=== PATIENT | female | born 1935 | race Caucasian/White ===

== ENCOUNTER 2019-12-21 13:45 | Outpatient (CLI) | payer MEDICARE, OTHER, SELFPAY ==
[2019-12-21] MEDS: iohexol 300 mg/mL 50 mL Btl PO (14:07)
[2019-12-21 14:37] LABS: Blood Urea Nitrogen 18 mg/dL (8-23)
--- NOTE | 2019-12-21 15:00 | CT_ITS ---
WS: [id number] CT ABDOMEN AND PELVIS WITH CONTRAST HISTORY: Abominal Pain TECHNIQUE: Imaging performed of the abdomen and pelvis with IV contrast. Single phase imaging of the abdomen. Coronal and sagittal reformats are submitted. All CT scans at [facility] use at least one of these dose optimization techniques: automated exposure control; mA and/or kV adjustment per patient size (includes targeted exams where dose is matched to clinical indication); or iterativ e reconstruction. IV CONTRAST: Omnipaque 300; 95 mL IV. Oral contrast: Yes. DLP: 902.85 mGy.cm COMPARISON: 01/21/2012 Lower thorax: Chronic emphysematous changes at the lung bases. No pleural effusion. Slightly enlarged cardiac silhouette. No hiatal hernia. Liver/biliary system: Normal size with no intrahepatic dilatation. Gallbladder: Prior cholecystectomy. Pancreas: Normal. Spleen: Normal. Adrenal glands: Normal. Right kidney: Normal. Left kidney: Cortical thinning upper pole selective prior studies. No solid mass or obstruction. Aorta: Moderate atherosclerosis of aorta. No aneurysm. Lymphadenopathy: None. Free fluid: There is no free fluid. Mild stranding in the fat of the RIGHT upper abdomen surrounding the colon. This is omental fat stranding which extends across the midline but greatest in the RIGHT u pper quadrant. GI tract: There is diffuse mild constipation. No mass or obstruction. Numerous diverticula in the leigh ann cending and sigmoid colon. The appendix is mildly dilated 8 mm in diameter. Abdominal wall: Unremarkable abdominal wall. No hernia. Pelvis: No free fluid or adenopathy. Mild dilatation of the bladder. There is extensive atheroscleros is in the common iliac arteries. Bones: Beam hardening artifact through the pelvis from the LEFT hip arthroplasty. Severe degenerative LEFT convex rotary scoliosis. CT/CT abdomen pelvis w con* [id number] IMPRESSION: 1. Mild omental thickening and stranding without discrete mass. Most prominent ly in the RIGHT upper abdomen with mild displacement of the transverse colon. D ifferential includes early omental neoplastic infiltration from malignancy whic h may be related to the GI tract versus infection or edema. Colonoscopy may be necessary or upper endoscopy to exclude malignancy. 2. Diffuse constipation but no obstruction. 3. No ascites. 4. Prior cholecystectomy. 5. Extensive atherosclerosis of aorta.
[2019-12-21] MEDS: iohexol 300 mg/mL 100 mL Btl IV (15:29)
== END 2019-12-21 13:46 | disposition home or self-care (01) ==
LOC: RAD 13:53
PROVIDERS: PCP Nurse Practitioner Family; Visit Provider Surgery
DX: R10.9 Unspecified abdominal pain (principal); K59.00 Constipation, unspecified; I70.0 Atherosclerosis of aorta
CPT/HCPCS: 74177; 82565; 84520

== ENCOUNTER 2020-01-08 08:22 | Day surgery (SDC) | payer MEDICARE, OTHER, SELFPAY ==
[2020-01-07 14:21] VITALS: BMI 29.0
[2020-01-08 08:58] VITALS: BP 161/86; PULSE 79; RESP 18; TEMP 36.4; O2SAT 93
[2020-01-08] MEDS: sodium chloride 0.9% 1,000 ML 30 ML IV (09:10)
[2020-01-08] MEDS: citric acid-sodium citrate 30 mL UDC PO (09:23)
--- NOTE | 2020-01-08 09:23 | P.ANESASSM_ITS ---
Pre-Anesthetic Assessment Pre-Anesthetic Assessment: Height/Weight: Height 1.55 m Weight 69.853 kg Temp Pulse Resp BP Pulse Ox 97.6 F 79 18 161/86 93 01/08/20 08:58 01/08/20 08:58 01/08/20 08:58 01/08/20 08:58 01/08/20 08:58 Preop Diagnosis: Omental thickening Proposed Procedure: Operation Date: 01/08/20 09:45 Proposed Procedures p EGD with poss biopsy/Colon 25715 57654 K52.9 K21.9(Not Applicable) - Fuad Yi MD s Colonoscopy with poss biopsy poss polypectomy(Not Applicable) - Fuad Yi MD Familial anesthetic complications: None Was Beta Santo taken within 24 hours: N/A Last intake: Intake Last Liquid Date 01/07/20 Last Liquid Time 21:30 Last Solid Date 01/06/20 Social: Social History: No alcohol and No tobacco Exam: Pre-Anes Outpt Exam: alert, oriented x 3, clear to auscultation bilaterally and regular rate & rhythm Airway: Cervical ROM: WNL Dentition: Full Pulmonary: Pulmonary: None reported CV/HEM: CV/HEM: Murmur Comments: > 4 METs, 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 [employer] : : None reported Hepatic: Hepatic: None reported GI: GI: None reported Metabolic: Metabolic: Thyroid Musc/skel: Musc/skel: OA/DJD Neuropsych: Neuropsych: None reported Anesthetic Plan: ASA status: 2 Anesthesia: MAC Risk of > 500 ml blood loss (7ml/kg in children): No Meds/Allergies Current Medications: Current Medications Generic Name Dose Route Start Last Admin Trade Name Freq PRN Reason Stop Dose Admin Sodium Chloride 1,000 mls @ 30 ml s/hr 01/08/20 08:30 01/08/20 09:10 Sodium Chloride 0.9% IV 30 mls/hr .Q24H MATTHEW Administration PFSH Anesthesia PFSH: Medical History Chronic back pain Chronic diarrhea History of diverticulitis History of gout Hypothyroidism Spinal stenosis Surgical History History of Xs 3 History of cholecystectomy History of hip surgery left hip. around 2014 History of tonsillectomy Hx of colonoscopy Family History Father Cancer Mother Diabetes Other Anesthesia complication CAD (coronary artery disease) Lung disease Denies family history of Bleeding disorder Stroke Social History Smoking and tobacco status: former smoker Alcohol intake: never History of recent travel: No Data Anesthesia Cardiac Studies: No Data to Display
--- NOTE | 2020-01-08 09:53 | W.PM.OPSUD ---
Surgery/Procedure H&P Update DATE OF PROCEDURE: January 08, 2020 DATE H&P PERFORMED: 12/28/19 H&P UPDATE INFORMATION: I have reviewed H&P completed within last 30 days, I have examined patient prior to procedure and No changes to prior documentation PREOP DIAGNOSIS: Omental thickening PLANNED PROCEDURE: Operation Date: 01/08/20 09:45 Proposed Procedures p EGD with poss biopsy/Colon [id number] 74999 K52.9 K21.9(Not Applicable) - Fuad Yi MD s Colonoscopy with poss biopsy poss polypectomy(Not Applicable) - Fuad Yi MD
[2020-01-08 10:20] VITALS: BP 141/74; PULSE 72; RESP 18; TEMP 36.4; O2SAT 100
[2020-01-08 10:30] VITALS: BP 139/71; PULSE 69; RESP 18; O2SAT 96
== END 2020-01-08 10:55 | disposition home or self-care (01) ==
PROVIDERS: PCP Nurse Practitioner Family; Visit Provider Surgery
PROC: 0DJ08ZZ Inspection of Upper Intestinal Tract, Via Natural or Artificial Opening Endoscopic (ICD-10-PCS; CPT 43235; principal; 2020-01-08 09:45)
PROC: 0DJD8ZZ Inspection of Lower Intestinal Tract, Via Natural or Artificial Opening Endoscopic (ICD-10-PCS; CPT 45378; 2020-01-08 09:45)
DX: K52.9 Noninfective gastroenteritis and colitis, unspecified (principal); K21.9 Gastro-esophageal reflux disease without esophagitis; K57.30 Diverticulosis of large intestine without perforation or abscess without bleeding; K22.2 Esophageal obstruction; K29.70 Gastritis, unspecified, without bleeding; M19.90 Unspecified osteoarthritis, unspecified site; E03.9 Hypothyroidism, unspecified
CPT/HCPCS: 12345; 43239; 45378; 88305; J2704; J7030

== ENCOUNTER 2020-09-18 13:12 | Outpatient (CLI) | payer OTHER, MEDICARE, SELFPAY ==
--- NOTE | 2020-09-18 13:17 | XR_ITS ---
WS: [id number] Exam: XR shoulder LT min 2V* [id number] Date/Time of Exam: 09/18/2020 1:30 PM Reason For Exam: L SHOULDER PAIN No acute fracture or dislocation. Moderately advanced DJD of the glenohumeral joint with near bone-on -bone articulation. Soft tissue calcification seen along the humeral head that may represent calcific bursitis or tendinitis. Mild DJD at the AC joint. Marked osteopenia. XR/XR shoulder LT min 2V* [id number] IMPRESSION: 1. No fracture or dislocation. 2. 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 3. Soft tissue calcification along the humeral head that might indicate calcifi c bursitis or tendinitis.
--- NOTE | 2020-09-18 13:17 | XR_ITS ---
WS: [id number] Exam: XR thoracic spine 3V* [id number] Date/Time of Exam: 09/18/2020 1:30 PM Reason For Exam: BACK PAIN Comparison 07/01/2010. No acute fracture. Degenerative disc changes and spondylosis. Osteopenia. Paraspinal soft tissues are unremarkable. Levoscoliosis of the lower thoracic and upper lumbar spine. XR/XR thoracic spine 3V* [id number] IMPRESSION: 1. Moderately advanced degenerative changes and osteopenia. 2. No fracture or malalignment. Scoliosis as above.
--- NOTE | 2020-09-18 13:18 | XR_ITS ---
WS: [id number] Exam: XR lumbar spine 2-3V* [id number] Date/Time of Exam: 09/18/2020 1:30 PM Reason For Exam: BACK PAIN No acute fracture or dislocation. There is grade 1 degenerative spondylolisthesis of L5 on the sacral base. Spondylosis and degenerative disc changes noted. Marked osteopenia. Facet arthropathy at all l evels. Levoscoliosis noted. Degenerative change of the SI joints. XR/XR lumbar spine 2-3V* [id number] IMPRESSION: 1. Grade 1 degenerative spondylolisthesis of L5 on S1. 2. Advanced degenerative changes and scoliosis. 3. No acute fracture. Osteopenia.
== END 2020-09-18 13:13 | disposition home or self-care (01) ==
PROVIDERS: PCP Nurse Practitioner Family; Visit Provider Nurse Practitioner Family
DX: M43.17 Spondylolisthesis, lumbosacral region (principal); M41.86 Other forms of scoliosis, lumbar region; M85.88 Other specified disorders of bone density and structure, other site; M19.012 Primary osteoarthritis, left shoulder
CPT/HCPCS: 72072; 72100; 73030

== ENCOUNTER 2021-12-26 19:40 | Emergency (ER) | payer MEDICARE, SELFPAY ==
[2021-12-26 20:01] VITALS: BP 126/78; PULSE 88; RESP 16; TEMP 37.1; O2SAT 96; BMI 26.5
--- NOTE | 2021-12-26 20:25 | ED_ITS ---
Documented by User: Santos De Luna MD 01/06/22 01:09 HPI - GI Bleed General: Chief complaint: GI Bleed Stated complaint: blood in stool Time Seen by Provider: 12/26/21 20:25 History of Present Illness: Ms. Degroot is an 86-year-old lady not on anticoagulation who presents to the emergency department due to rectal bleeding. She reports approximately 10 days of no bowel movement with exception of some liquid output. She has associated mild abdominal discomfort. Her primary concern though is that earlier today she had the urge to defecate and then just passed albaro blood with clots. Denies associated lightheadedness or infectious symptoms. No chest pain or shortness of breath. Intensity symptoms is moderate. Course has persisted. No other specific changes in health, exacerbating, or alleviating factors identified. Onset (ago): day(s) Severity: moderate Exacerbating factors: none Associated symptoms: Reports abdominal pain; Denies easy bruising, fever(s) or other bleeding Review of Systems General: Reports: 10 or more systems reviewed and unremarkable except in HPI and below Const: Denies: fever(s) GI: Reports: abdominal pain Elver/Lymph: Denies: easy bruising PFS ED PFSH: Medical History Chronic back pain Gastritis History of diverticulitis History of gout Hypothyroidism Spinal stenosis Surgical History H/O esophagogastroduodenoscopy (01/08/20) Severe gastritis, hiatal hernia, Schatzki ring History of Xs 3 History of cholecystectomy History of hip surgery left hip. around 2014 History of tonsillectomy Hx of colonoscopy (01/08/20) Diverticulosis Family History Father Cancer Mother Diabetes Other Anesthesia complication CAD (coronary artery disease) Lung disease Denies family history of Bleeding disorder Stroke Social History Smoking and tobacco status: never smoked Alcohol intake: never History of recent travel: No Physical Exam Const: COMMON NORMALS: alert GENERAL APPEARANCE: cooperative, well developed and ill appearing (Mildly) HENMT: COMMON NORMALS: normocephalic and atraumatic HEAD & SCALP: normocephalic and atraumatic THROAT: posterior oropharynx normal Eye: COMMON NORMALS: conjunctivae normal CONJUNCTIVA: Yes conjunctivae normal SCLERA: sclerae normal Neck/C-Spine: COMMON NORMALS: supple GENERAL: Yes trachea midline Resp: COMMON NORMALS: normal respiratory effort and clear to auscultation bilaterally EFFORT & INSPECTION: Yes able to speak in complete sentences AUSCULTATION: clear to auscultation bilaterally Cardio: COMMON NORMALS: regular rate and regular rhythm RATE: regular rate RHYTHM: regular rhythm GI: COMMON NORMALS: Soft to palpation PALPATION: Yes Soft to palpation, Yes Tenderness to palpation present (GI) (Very mild generalized), No Guarding due to palpation present (GI) and No Rigid due to palpation PERCUSSION: normal to percussion Extremity: GENERAL: Yes normal exam except as noted and No edema Neuro: COMMON NORMALS: moves all extremities SENSORIUM/ORIENTATION: Yes alert and No Orientation impaired Psych: COMMON NORMALS: mental status grossly normal and Normal thought process present THOUGHT PROCESS: Normal thought process present Course ED course: - Patient was seen and evaluated by me at bedside - Patient placed on cardiac monitors, IV access obtained - Initial evaluation notable for exam as above - Labs personally interpreted by me -Analgesia given - Labs notable for leukocytosis, normal hemoglobin. Mild thrombocytosis. Metabolic panel notable for mild hypokalemia, BUN normal. Potassium re plenishment ordered. Hematuria noted of unclear cause, possible contamination, in urinalysis. - Imaging notable for no active hemorrhage noted on CT abdomen pelvis. Patient has significant colonic fecal volume and evidence of fecal impaction possible. - Performed rectal exam with safety person present. There was evidence of albaro blood to the external buttocks. Perhaps mild external hemorrhoids though no active bleeding from these noted. I attempted to perform manual disimpaction however only small amounts of stool mixed with mostly blood was reachable. Stool ball is hard. Given amount of bleeding I decided additional manual disimpaction should not be performed. - Discussed with GI on-call who will see patient in the morning. Vitals satisfactory at this time and hemoglobin as noted. - Upon serial reexamination after treatment the patient was similar without decompensation during my evaluation patient - Based on patient history, evaluation, and testing as interpreted the most likely cause of the patient's condition is GI bleed - The results of ED evaluation were discussed with the patient including plan for admission due to requirement for level of care not available if discharged to prevent significant worsening/deterioration. - Admitting service was contacted and Dr Cabezas with the hospitalist service agreed to admit the patient - Per chart review patient end to being transferred after deterioration due to worsening GI bleed. Please see Dr. Choi's note under MDM for additional information. Note: Click bubbles or prepopulated solomon in note writing are used for assistance with data collection and billing and are inherently more limited than narrative and other text portions of this note. Please use narrative for additional clinical history and defer to narrative/free test for any case of contradictory information. If information appears in only free text or click bubble it should be considered present or absent as reported. Please contact note parts data writer for clarifications of clinical information or contradictory information. MDM is a brief summary, contradictory or erroneous seeming information should be clarified and full note should be reviewed. Vital Signs: Vital signs: Vital Signs Temperature 98.8 F 12/26/21 20:01 Pulse Rate 71 12/27/21 03:58 Respiratory Rate 16 12/27/21 03:58 Blood Pressure 119/68 12/27/21 03:58 Pulse Oximetry 97 12/27/21 03:58 MDM - GI Bleed Medical Decision Making 86-year-old lady with approximately 10 days of constipation presenting due to blood per rectum. Albaro blood noted per rectum however patient remains vitally stable with satisfactory hemoglobin. Discussed with GI/surgery on-call. Patient admitted to hospitalist service however per chart review subsequently decompensated. Please see Dr. Choi's note and Dr. Cabezas's note for additional information. Called to bedside regarding an increasing amount of bright red blood out of the rectum. Patient had been admitted to ICU for lower GI bleeding. Bleeding is in creasing in volume. Blood pressure is a bit softer now, 96 over 50s. She is nontachycardic. She is having some rectal/left lower quadrant pain. I have crossmatched her for 2 units of packed cells, and given her a gram of tranexamic acid. I spoke with the hospitalist, who is nervous about admitting this patient to our facility given no gastroenterology availability. I tend to agree, as this patient will need intervention of some sort. We have spoken to [facility] emergency department. They are willing to take in transfer. Due to critical nature, and decreased ground ambulance availability, she will go by air. Medical Records I reviewed the patient's medical records. Lab Data I reviewed the patient's lab results. : 12/26/21 21:20 12/26/21 21:20 Radiology Impressions Abdomen/Pelvis CT 12/26/21 20:56 IMPRESSION: 1. No active gastrointestinal bleeding is identified. 2. Large colonic fecal volume. Fecal impaction of the rectum not excluded. Laboratory Results WBC 14.9 10^3/uL (4.0-10.0) H 12/26/21 21:20 RBC 4.08 10^6/uL (4.1-5.3) L 12/26/21 21:20 Hgb 12.1 g/dL (11.5-15.3) 12/26/21 21:20 Hct 36.8 % (37.0-47.0) L 12/26/21 21:20 MCV 90.2 fl (81-99) 12/26/21 21:20 MCH 29.7 pg (28.0-34.0) 12/26/21 21:20 MCHC 32.9 g/dL (30.0-36.0) 12/26/21 21:20 RDW 13.2 % (12.1-15.1) 12/26/21 21:20 Plt Count 508 10^3/cmm (130-400) H 12/26/21 21:20 MPV 9.5 fL (7.4-10.4) 12/26/21 21:20 Neut % (Auto) 68.8 % 12/26/21 21:20 Lymph % (Auto) 19.0 % 12/26/21 21:20 [place] % (Auto) 10.2 % 12/26/21 21:20 Eos % (Auto) 1.1 % 12/26/21 21:20 Baso % (Auto) 0.5 % 12/26/21 21:20 Neut # (Auto) 10.22 10^3/uL (1.8-7.7) H 12/26/21 21:20 Lymph # (Auto) 2.8 10^3/uL (0.8-4.8) 12/26/21 21:20 [place] # (Auto) 1.5 10^3/uL (0.2-0.9) H 12/26/21 21:20 Eos # (Auto) 0.2 10^3/uL (0.0-0.8) 12/26/21 21:20 Baso # (Auto) 0.1 10^3/uL (0.0-0.1) 12/26/21 21:20 Nucleated RBC % (auto) 0 % 12/26/21 21:20 Nucleated RBCs # 0.0 /100WBC 12/26/21 21:20 PT 12.80 SECONDS (12.1-14.9) 12/26/21 21:20 INR 0.93 (0.8-1.2) 12/26/21 21:20 APTT 25.2 SECONDS (23.9-36.7) 12/26/21 21:20 Sodium 137 mmol/L (136-145) 12/26/21 21:20 Potassium 3.1 mmol/L (3.5-5.1) L 12/26/21 21:20 Chloride 100 mmol/L (98-107) 12/26/21 21:20 Carbon Dioxide 25 mmol/L (22-29) 12/26/21 21:20 Anion Gap 15.1 (5-19) 12/26/21 21:20 BUN 23 mg/dL (8-23) 12/26/21 21:20 Creatinine 0.9 mg/dL (0.5-0.9) 12/26/21 21:20 GFR Calculation Not Reportable 12/26/21 21:20 Glucose 100 mg/dL (65-115) 12/26/21 21:20 Calculated Osmolality 288 mOsm/kg (285-295) 12/26/21 21:20 Lactate 1.2 mmol/L (0.5-2.2) 12/26/21 21:20 Calcium 9.1 mg/dL (8.5-10.5) 12/26/21 21:20 Total Bilirubin 0.2 mg/dL (0.15-1.2) 12/26/21 21:20 AST 18 U/L (0-32) 12/26/21 21:20 ALT 14 U/L (0-33) 12/26/21 21:20 Alkaline Phosphatase 64 IU/L (35-105) 12/26/21 21:20 Total Protein 6.0 g/dL (6.6-8.7) L 12/26/21 21:20 Albumin 4.0 g/dL (3.5-5.2) 12/26/21 21:20 Globulin 2.0 g/dL (1.3-4.6) 12/26/21 21:20 Lipase 26 U/L (13-60) 12/26/21 21:20 Urine Color Yellow (Yellow) 12/26/21 23:49 Urine Appearance Clear (CLEAR) 12/26/21 23:49 Urine pH 7 (5-7) 12/26/21 23:49 Ur Specific [place] 1.005 (1.005-1.030) 12/26/21 23:49 Urine Protein Neg (Negative) 12/26/21 23:49 Urine Glucose (UA) Norm (Normal) 12/26/21 23:49 Urine Ketones Negative (Negative) 12/26/21 23:49 Urine Blood 3+ (Negative) H 12/26/21 23:49 Urine Nitrate Negative (Negative) 12/26/21 23:49 Urine Bilirubin Neg (Negative) 12/26/21 23:49 Urine Urobilinogen Norm mg/dL (Negative) 12/26/21 23:49 Ur Leukocyte Esterase Negative (Negative) 12/26/21 23:49 Urine RBC 10-15 /hpf (0-2) H 12/26/21 23:49 Urine WBC 0-4 /hpf (0-5) H 12/26/21 23:49 Ur Squamous Epith Cells 0-4 /hpf (0-5) H 12/26/21 23:49 Amorphous Sediment Not Reportable 12/26/21 23:49 Urine Bacteria Trace /hpf (NONE) 12/26/21 23:49 Blood Type O Negative 12/26/21 23:30 Rho(D) Type Negative 12/26/21 23:30 Antibody Screen Positive 12/26/21 23:30 Antibody Identification Anti-D 12/26/21 23:30 Crossmatch See Detail 12/26/21 23:30 Critical Care Time Critical Care Time: Critical Care Time: Yes Total Critical Care Time: 35 Attestation: Due to a high probability of clinically significant, possibly life threatening deterioration, the patient required my highest level of attention and preparedness to intervene emergently and I personally spent this critical care time directly and personally managing the patient. This critical care time included obtaining a history; examining the patient; pulse oximetry; ordering and review of laboratory and imaging studies; arranging urgent treatment with development of a management plan; evaluation of patient's response to treatment; frequent reassessment; and, discussions with other providers as applicable. It was exclusive of separately billable procedures. Performed by Dr. Choi Discharge Plan Discharge Patient Disposition: Xfer Short-Term Hosp Clinical Impression: Acute GI bleeding, Constipation Condition: Stable Referrals: Arlin Aguilar APN [Primary Care Provider] - Coding Level of Care Code ED Group Home Counselor for Chg Fwd Documented by User: Tono Choi DO 12/27/21 02:51 HPI - GI Bleed General: Chief complaint: GI Bleed Stated complaint: blood in stool Time Seen by Provider: 12/26/21 20:25 PFSH ED PFSH: Medical History Chronic back pain Gastritis History of diverticulitis History of gout Hypothyroidism Spinal stenosis Surgical History H/O esophagogastroduodenoscopy (01/08/20) Severe gastritis, hiatal hernia, Schatzki ring History of Xs 3 History of cholecystectomy History of hip surgery left hip. around 2014 History of tonsillectomy Hx of colonoscopy (01/08/20) Diverticulosis Family History Father Cancer Mother Diabetes Other Anesthesia complication CAD (coronary artery disease) Lung disease Denies family history of Bleeding disorder Stroke Social History Smoking and tobacco status: never smoked Alcohol intake: never History of recent travel: No Course Vital Signs: Vital signs: Vital Signs Temperature 98.8 F 12/26/21 20:01 Pulse Rate 71 12/27/21 03:58 Respiratory Rate 16 12/27/21 03:58 Blood Pressure 119/68 12/27/21 03:58 Pulse Oximetry 97 12/27/21 03:58 MDM - GI Bleed Medical Decision Making Called to bedside regarding an increasing amount of bright red blood out of the rectum. Patient had been admitted to ICU for lower GI bleeding. Bleeding is increasing in volume. Blood pressure is a bit softer now, 96 over 50s. She is nontachycardic. She is having some rectal/left lower quadrant pain. I have microarray analyst ssmatched her for 2 units of packed cells, and given her a gram of tranexamic acid. I spoke with the hospitalist, who is nervous about admitting this patient to our facility given no gastroenterology availability. I tend to agree, as this patient will need intervention of some sort. We have spoken to [facility] emergency department. They are willing to take in transfer. Due to critical nature, and decreased ground ambulance availability, she will go by air. Lab Data : 12/26/21 21:20 12/26/21 21:20 Radiology Impressions Abdomen/Pelvis CT 12/26/21 20:56 IMPRESSION: 1. No active gastrointestinal bleeding is identified. 2. Large colonic fecal volume. Fecal impaction of the rectum not excluded. Laboratory Results WBC 14.9 10^3/uL (4.0-10.0) H 12/26/21 21:20 RBC 4.08 10^6/uL (4.1-5.3) L 12/26/21 21:20 Hgb 12.1 g/dL (11.5-15.3) 12/26/21 21:20 Hct 36.8 % (37.0-47.0) L 12/26/21 21:20 MCV 90.2 fl (81-99) 12/26/21 21:20 MCH 29.7 pg (28.0-34.0) 12/26/21 21:20 MCHC 32.9 g/dL (30.0-36.0) 12/26/21 21:20 RDW 13.2 % (12.1-15.1) 12/26/21 21:20 Plt Count 508 10^3/cmm (130-400) H 12/26/21 21:20 MPV 9.5 fL (7.4-10.4) 12/26/21 21:20 Neut % (Auto) 68.8 % 12/26/21 21:20 Lymph % (Auto) 19.0 % 12/26/21 21:20 [place] % (Auto) 10.2 % 12/26/21 21:20 Eos % (Auto) 1.1 % 12/26/21 21:20 Baso % (Auto) 0.5 % 12/26/21 21:20 Neut # (Auto) 10.22 10^3/uL (1.8-7.7) H 12/26/21 21:20 Lymph # (Auto) 2.8 10^3/uL (0.8-4.8) 12/26/21 21:20 [place] # (Auto) 1.5 10^3/uL (0.2-0.9) H 12/26/21 21:20 Eos # (Auto) 0.2 10^3/uL (0.0-0.8) 12/26/21 21:20 Baso # (Auto) 0.1 10^3/uL (0.0-0.1) 12/26/21 21:20 Nucleated RBC % (auto) 0 % 12/26/21 21:20 Nucleated RBCs # 0.0 /100WBC 12/26/21 21:20 PT 12.80 SECONDS (12.1-14.9) 12/26/21 21:20 INR 0.93 (0.8-1.2) 12/26/21 21:20 APTT 25.2 SECONDS (23.9-36.7) 12/26/21 21:20 Sodium 137 mmol/L (136-145) 12/26/21 21:20 Potassium 3.1 mmol/L (3.5-5.1) L 12/26/21 21:20 Chloride 100 mmol/L (98-107) 12/26/21 21:20 Carbon Dioxide 25 mmol/L (22-29) 12/26/21 21:20 Anion Gap 15.1 (5-19) 12/26/21 21:20 BUN 23 mg/dL (8-23) 12/26/21 21:20 Creatinine 0.9 mg/dL (0.5-0.9) 12/26/21 21:20 GFR Calculation Not Reportable 12/26/21 21:20 Glucose 100 mg/dL (65-115) 12/26/21 21:20 Calculated Osmolality 288 mOsm/kg (285-295) 12/26/21 21:20 Lactate 1.2 mmol/L (0.5-2.2) 12/26/21 21:20 Calcium 9.1 mg/dL (8.5-10.5) 12/26/21 21:20 Total Bilirubin 0.2 mg/dL (0.15-1.2) 12/26/21 21:20 AST 18 U/L (0-32) 12/26/21 21:20 ALT 14 U/L (0-33) 12/26/21 21:20 Alkaline Phosphatase 64 IU/L (35-105) 12/26/21 21:20 Total Protein 6.0 g/dL (6.6-8.7) L 12/26/21 21:20 Albumin 4.0 g/dL (3.5-5.2) 12/26/21 21:20 Globulin 2.0 g/dL (1.3-4.6) 12/26/21 21:20 Lipase 26 U/L (13-60) 12/26/21 21:20 Urine Color Yellow (Yellow) 12/26/21 23:49 Urine Appearance Clear (CLEAR) 12/26/21 23:49 Urine pH 7 (5-7) 12/26/21 23:49 Ur Specific [place] 1.005 (1.005-1.030) 12/26/21 23:49 Urine Protein Neg (Negative) 12/26/21 23:49 Urine Glucose (UA) Norm (Normal) 12/26/21 23:49 Urine Ketones Negative (Negative) 12/26/21 23:49 Urine Blood 3+ (Negative) H 12/26/21 23:49 Urine Nitrate Negative (Negative) 12/26/21 23:49 Urine Bilirubin Neg (Negative) 12/26/21 23:49 Urine Urobilinogen Norm mg/dL (Negative) 12/26/21 23:49 Ur Leukocyte Esterase Negative (Negative) 12/26/21 23:49 Urine RBC 10-15 /hpf (0-2) H 12/26/21 23:49 Urine WBC 0-4 /hpf (0-5) H 12/26/21 23:49 Ur Squamous Epith Cells 0-4 /hpf (0-5) H 12/26/21 23:49 Amorphous Sediment Not Reportable 12/26/21 23:49 Urine Bacteria Trace /hpf (NONE) 12/26/21 23:49 Blood Type O Negative 12/26/21 23:30 Rho(D) Type Negative 12/26/21 23:30 Antibody Screen Positive 12/26/21 23:30 Antibody Identification Anti-D 12/26/21 23:30 Crossmatch See Detail 12/26/21 23:30 Discharge Plan Discharge Patient Disposition: Xfer Short-Term Hosp Clinical Impression: Acute GI bleeding, Constipation Condition: Stable Referrals: Aguilar,Arlin [employer] [Primary Care Provider] - Coding Level of Care Code ED Group Home Counselor for Rachael Palacio
[2021-12-26 20:30] VITALS: BP 118/71; PULSE 85; O2SAT 97
--- NOTE | 2021-12-26 20:56 | CTR_ITS ---
PROCEDURE INFORMATION: Exam: CT Abdomen And Pelvis With Contrast Exam date and time: 12/26/2021 10:25 PM Age: 86 years old Clinical indication: Other: Gi bleeding; Prior surgery; Surgery date: 6+ months; Surgery type: Hsyt, gb; Additional info: Gi bleed TECHNIQUE: Imaging protocol: Computed tomography of the abdomen and pelvis with contrast. Radiation optimization: All CT scans at this facility use at least one of these dose optimization techniques: automated exposure control; mA and/or kV adjustment per patient size (includes targeted exams where dose is matched to clinical indication); or iterative reconstruction. Contrast material: OMNI 300; Contrast volume: 95 ml; Contrast route: INTRAVENOUS (IV); COMPARISON: CT abdomen pelvis w con* [id number] 12/21/2019 3:18 PM RADIATION DOSE METRICS: Total DLP (mGy-cm): 1197.7 FINDINGS: Liver: Normal. No mass. Gallbladder and bile ducts: Cholecystectomy. Mildly dilated common bile duct is nonspecific after cholecystectomy. Stable finding from prior. Pancreas: Normal. No ductal dilation. Spleen: Normal. No splenomegaly. Adrenal glands: Normal. No mass. Kidneys and ureters: Normal. No hydronephrosis. Stomach and bowel: Large diffuse colonic fecal volume. Diverticulosis coli. No focal bowel mass. No focal bowel inflammatory changes identified. There is a large collection of rounded radiopaque calcified stones which layer dependently in the lumen a patulous, dilated cecum most consistent with multiple fecaliths. No extravasation of contrast into the bowel lumen identified. Appendix: No evidence of appendicitis. Intraperitoneal space: Unremarkable. No free air. No significant fluid collection. Vasculature: Unremarkable. No abdominal aortic aneurysm. Lymph nodes: Unremarkable. No enlarged lymph nodes. Urinary bladder: Unremarkable as visualized. Reproductive: Hysterectomy. Bones/joints: Left hip arthroplasty has unremarkable alignment. Grade 1 L5-S1 spondylolisthesis with severe degenerate disc disease.The lumbar spine demonstrates marked discogenic and apophyseal joint degenerative changes at multiple levels. Leftward convex lumbar spine scoliosis. Soft tissues: Unremarkable. CT/CT abdomen pelvis w con* [id number] IMPRESSION: 1. No active gastrointestinal bleeding is identified. 2. Large colonic fecal volume. Fecal impaction of the rectum not excluded.
[2021-12-26 21:30] VITALS: BP 121/86; PULSE 79; RESP 20; O2SAT 95
[2021-12-26 21:45] LABS: Basophils # 0.1 10^3/uL (0.0-0.1); Basophils % 0.5 %; Eosinophils # 0.2 10^3/uL (0.0-0.8); Eosinophils % 1.1 %; Hematocrit 36.8 % (37.0-47.0); Hemoglobin 12.1 g/dL (11.5-15.3); Lymphocytes # 2.8 10^3/uL (0.8-4.8); Mean Corpuscular HGB Conc 32.9 g/dL (30.0-36.0); Mean Corpuscular Hemoglobin 29.7 pg (28.0-34.0); Mean Corpuscular Volume 90.2 fl (81-99); Mean Platelet Volume 9.5 fL (7.4-10.4); Monocytes # 1.5 10^3/uL (0.2-0.9); Monocytes % 10.2 %; Neutrophils # 10.22 10^3/uL (1.8-7.7); Neutrophils % 68.8 %; Nucleated Red Blood Cells % 0 %; Platelet Count 508 10^3/cmm (130-400); Red Blood Count 4.08 10^6/uL (4.1-5.3); Red Cell Distribution Width 13.2 % (12.1-15.1); White Blood Count 14.9 10^3/uL (4.0-10.0)
[2021-12-26 21:56] LABS: INR 0.93 (0.8-1.2); Partial Thromboplastin Time 25.2 SECONDS (23.9-36.7)
[2021-12-26 22:01] LABS: Alanine Aminotransferase 14 U/L (0-33); Alkaline Phosphatase 64 IU/L (35-105); Anion Gap 15.1 (5-19); Aspartate Amino Transferase 18 U/L (0-32); Blood Urea Nitrogen 23 mg/dL (8-23); Calcium 9.1 mg/dL (8.5-10.5); Carbon Dioxide 25 mmol/L (22-29); Chloride 100 mmol/L (98-107); Glucose 100 mg/dL (65-115); Lactate (Lactic Acid level) 1.2 mmol/L (0.5-2.2); Lipase 26 U/L (13-60); Osmolality Calculated 288 mOsm/kg (285-295); Potassium 3.1 mmol/L (3.5-5.1); Sodium 137 mmol/L (136-145); Total Bilirubin 0.2 mg/dL (0.15-1.2)
[2021-12-26] MEDS: iohexol 300 mg/mL 100 mL Btl IV (22:24)
--- NOTE | 2021-12-26 22:53 | PC.NURSE ---
pt had stool in bathroom that was blood, pt's rectum observed blood clots notes and notified
[2021-12-26 23:41] VITALS: RESP 18; O2SAT 93
[2021-12-26] MEDS: potassium chloride oral liq 20 mEq/15 mL UDC 40 MEQ PO (23:41)
[2021-12-26] MEDS: lidocaine 2% Urojet 20 mL TOPICAL (23:41)
[2021-12-26] MEDS: fentaNYL 50 mcg/mL INJ 2mL IVP (23:41)
[2021-12-27] VITALS: BP 139/75; PULSE 84; RESP 18; O2SAT 94
[2021-12-27 00:12] LABS: Add Urine Culture? No; Add Urine Microscopic? YES; Bacteria Urine TRACE /hpf; Bilirubin Urine Neg (Negative); Blood Urine 3+ (Negative); Glucose Urine UA Norm (Normal); Ketones Urine Negative (Negative); Leukocyte Esterase Urine Negative (Negative); Nitrate Urine Negative (Negative); Protein Urine Neg (Negative); Specific Gravity, Urine 1.005 (1.005-1.030); Squamous Epithelial Cell Urine 0-4 /hpf (0-5); Urine Appearance Clear (CLEAR); Urine Color Yellow (Yellow); Urobilinogen Urine Norm (Negative); WBC Urine 0-4 /hpf (0-5); pH Urine 7 (5-7)
[2021-12-27 00:30] VITALS: BP 112/64; PULSE 70; RESP 18; O2SAT 96
[2021-12-27 01:00] VITALS: BP 105/69; PULSE 98; RESP 20; O2SAT 98
[2021-12-27 01:30] VITALS: BP 90/54; PULSE 83; RESP 18; O2SAT 93
--- NOTE | 2021-12-27 01:40 | P.HP_ITS ---
Providers/Chief Complaint Primary Care Provider: Arlin Aguilar APN Chief Complaint: blood in stool History of Present Illness Kassie Degroot is a 86 year old female with a diverticulosis, hypothyroidism, chronic back pain, history of EGDs, who presents to [facility] due to 1 day history of bloody stools. Patient tells me that yesterday at 3 PM, she started develop frankly bloody stools when she had a bowel movement, she had 1 episode at 3 PM, she has had 1 episode here in the emergency room. No lightheadedness, dizziness, no nausea, no vomiting. She was able to ambulate by herself to the bathroom here in the emergency room without any lightheadedness or dizziness. No falls. No history of blood thinner use. Denies a prior history of bleeding. Does have history of hemorrhoids. She did have an EGD roughly year ago for gastritis, Was found to have a Schatzki's ring Review of Systems Const: Denies: fever(s) Resp: Denies: dyspnea, productive cough, non-productive cough or wheezing GI: Denies: abdominal pain, nausea or vomiting : Denies: dysuria Neuro: Denies: dizziness Medications/Allergies Home Medications Medication Instructions Recorded Confirmed Last Taken Type betaine HCl 300 mg tablet 300 mg PO BID 11/08/19 06/23/21 01/07/20 History duloxetine 60 mg capsule,delayed 60 mg PO DAILY 11/08/19 06/23/21 01/07/20 History release (Cymbalta) furosemide 40 mg tablet (Lasix) 40 mg PO BID 11/08/19 06/23/21 01/07/20 History hydrocodone 10 mg-acetaminophen 1 tab PO Q4H PRN tab 11/08/19 06/23/21 01/08/20 History 325 mg tablet levothyroxine 75 mcg tablet 75 mcg PO DAILY 11/08/19 06/23/21 01/08/20 History (Synthroid) magnesium hydroxide 400 mg (170 mg 400 mg PO DAILY 11/08/19 06/23/21 01/07/20 History magnesium) chewable tablet dexlansoprazole 60 mg 60 mg PO DAILY 30 Days #30 cap 12/19/20 06/23/21 Unknown Rx capsule,biphase delayed release Allergies Allergy/AdvReac Type Severity Reaction Status Date / Time codeine Allergy Unknown cant Verified 06/23/21 14:34 remember Sulfa (Sulfonamide Allergy Unknown cant Verified 06/23/21 14:34 Antibiotics) remember PFSH Acute PFSH: Medical History Chronic back pain Gastritis History of diverticulitis History of gout Hypothyroidism Spinal stenosis Surgical History H/O esophagogastroduodenoscopy (01/08/20) Severe gastritis, hiatal hernia, Schatzki ring History of Xs 3 History of cholecystectomy History of hip surgery left hip. around 2014 History of tonsillectomy Hx of colonoscopy (01/08/20) Diverticulosis Family History Father Cancer Mother Diabetes Other Anesthesia complication CAD (coronary artery disease) Lung disease Denies family history of Bleeding disorder Stroke Social History Smoking and tobacco status: never smoked Alcohol intake: never History of recent travel: No Vitals/I&O/Wt Last Vital Signs Temp 98.8 F 12/26/21 20:01 Pulse 79 12/26/21 21:30 Resp 18 12/26/21 23:41 BP 121/86 12/26/21 21:30 Pulse Ox 93 12/26/21 23:41 Weight last 48 hrs Weight 61.689 kg Physical Exam Const: COMMON NORMALS: no acute distress and patient oriented x3 HENMT: COMMON NORMALS: normocephalic HEAD & SCALP: normocephalic Neck/C-Spine: COMMON NORMALS: no JVD Resp: COMMON NORMALS: normal respiratory effort, No retractions, No use of accessory muscles and clear to auscultation bilaterally AUSCULTATION: clear to auscultation bilaterally Cardio: COMMON NORMALS: no JVD, regular rate, regular rhythm, S1 normal heart sound present and S2 normal heart sound present RATE: regular rate RHYTHM: regular rhythm HEART SOUNDS: S1 normal heart sound present and S2 normal heart sound present GI: COMMON NORMALS: Normal to inspection, nondistended, normoactive bowel sounds present, Soft to palpation, non-tender, No hepatosplenomegaly present, no masses and no bruits PALPATION: Yes Soft to palpation and Yes No hepatosplenomegaly present Extremity: COMMON NORMALS: capillary refill normal, no clubbing, cyanosis or edema, no calf tenderness and no pedal edema Neuro: COMMON NORMALS: patient oriented x3 Psych: COMMON NORMALS: mental status grossly normal Data : 12/26/21 21:20 12/26/21 21:20 A&P Assessment and plan (1) Acute GI bleeding: Status: Acute Plan Acute GI bleed -Concerning for diverticular bleed -1 episode of bloody bowel movement here in the emergency room -Hemodynamically stable, normotensive, no tachycardia, no lightheadedness, no diaphoresis, not requiring oxygen -We will moved to ICU -Monitor hemodynamics closely, monitor hemoglobin -Transfuse blood if less than 7, FFP -General surgery has been consulted -If she continues to have episodes of bleeding, she might require transfer for angio embolization of bleed -She is DNR/DNI -Protonix for GI prophylaxis -Anticoagulation contraindicated given bleed Attestations Medical Necessity Statement*: Patient requires hospitalization for acute GI bleed inpatient, greater than 2 midnights Coding Level of Care Code Acute Aircraft 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
[2021-12-27 01:53] VITALS: BP 90/54; PULSE 76; RESP 16; O2SAT 95
--- NOTE | 2021-12-27 02:05 | PC.NURSE ---
changed pads at the rectum holding pressure to rectum. Large blood clot at site.
--- NOTE | 2021-12-27 03:13 | PC.NURSE ---
Started one unit of blood and gave almost completely. Passed next unit of blood to Helicopter crew. Mikey at bedside. Situation explained that patient was critically ill and needed to be transported to [facility]. Report given to EMS crew. Called report to [facility] and spoke with Charu HINKLE.
[2021-12-27 03:58] VITALS: BP 119/68; PULSE 71; RESP 16; O2SAT 97
== END 2021-12-27 04:41 | disposition short-term general hospital (02) ==
PROVIDERS: Emergency Medicine; Emergency Provider Emergency Medicine; PCP Nurse Practitioner Family
DX: K92.2 Gastrointestinal hemorrhage, unspecified (principal); K59.00 Constipation, unspecified
CPT/HCPCS: 74177; 80053; 80503; 81001; 81003; 83605; 83690; 85025; 85610; 85730; 86850; 86870; 86900; 86920; 96374; 96375; 99285; 99291; 99292; J3010; P9016; Q9967

== ENCOUNTER 2022-01-22 15:31 | Observation (INO) | payer MEDICARE, SELFPAY ==
[2022-01-22 15:44] VITALS: BP 128/67; PULSE 75; RESP 16; TEMP 37.5; O2SAT 92; BMI 25.9
[2022-01-22 15:53] VITALS: BP 96/55; PULSE 56; RESP 13; O2SAT 95
[2022-01-22 16:40] LABS: Basophils # 0.1 10^3/uL (0.0-0.1); Basophils % 0.5 %; Eosinophils # 0.2 10^3/uL (0.0-0.8); Eosinophils % 1.3 %; Hematocrit 26.6 % (37.0-47.0); Lymphocytes # 2.6 10^3/uL (0.8-4.8); Mean Corpuscular HGB Conc 33.8 g/dL (30.0-36.0); Mean Corpuscular Volume 82.6 fl (81-99); Mean Platelet Volume 9.3 fL (7.4-10.4); Monocytes # 1.3 10^3/uL (0.2-0.9); Monocytes % 9.7 %; Nucleated Red Blood Cells % 0 %; Platelet Count 472 10^3/cmm (130-400); Red Blood Count 3.22 10^6/uL (4.1-5.3); Red Cell Distribution Width 12.8 % (12.1-15.1); White Blood Count 12.9 10^3/uL (4.0-10.0)
[2022-01-22 16:53] VITALS: BP 135/80; PULSE 55; RESP 14; O2SAT 94
[2022-01-22 16:54] LABS: INR 1.05 (0.8-1.2); Partial Thromboplastin Time 25.5 SECONDS (23.9-36.7)
[2022-01-22 17:01] LABS: Anion Gap 16.6 (5-19); Blood Urea Nitrogen 32 mg/dL (8-23); Calcium 8.7 mg/dL (8.5-10.5); Carbon Dioxide 23 mmol/L (22-29); Chloride 98 mmol/L (98-107); Glucose 176 mg/dL (65-115); Osmolality Calculated 291 mOsm/kg (285-295); Sodium 135 mmol/L (136-145)
[2022-01-22 17:12] LABS: Potassium 2.6 mmol/L (3.5-5.1)
--- NOTE | 2022-01-22 17:26 | W.ED.GENADLT ---
HPI - General Adult General: Chief complaint: General Medical Stated complaint: PCP sent for anemia Time Seen by Provider: 01/22/22 17:13 History of Present Illness: Patient is an 86-year-old female with a history of prior rectal bleeding who presents the emergency room for evaluation of lab abnormality. It is unclear what laterality patient has per family. Patient was instructed come to the emergency room. Patient denies any melena or hematochezia, rectal pain at this time. Patient reports chronic constipation has not been improving. Patient denies any fever chills, abdominal pain, cough, runny nose sore throat chest pain or shortness of breath. In addition, patient reports that both of her legs are swollen despite taking Lasix 40 mg twice daily. Onset:ongoing x 3 days Duration:3 days Location:home Severity:moderate Associated symptoms: Deny chest pain, dyspnea, nausea, rash, palpitations or vomiting Review of Systems Const: Denies: fever(s) or chills Eyes: Denies: change in vision ENMT: Denies: mouth pain Card: Denies: chest pain or palpitations Resp: Denies: dyspnea or non-productive cough GI: Denies: abdominal pain, nausea, vomiting or diarrhea : Denies: dysuria Musc: Denies: extremity pain Skin/Breast: Denies: rash or new lesions Neuro: Denies: weakness in extremities Psych: Reports: other (Normal mood) Elver/Lymph: Denies: easy bruising PFSH ED PFSH: Medical History Chronic back pain Gastritis History of diverticulitis History of gout Hypothyroidism Spinal stenosis Surgical History H/O esophagogastroduodenoscopy (01/08/20) Severe gastritis, hiatal hernia, Schatzki ring History of Xs 3 History of cholecystectomy History of hip surgery left hip. around 2014 History of tonsillectomy Hx of colonoscopy (01/08/20) Diverticulosis Family History Father Cancer Mother Diabetes Other Anesthesia complication CAD (coronary artery disease) Lung disease Denies family history of Bleeding disorder Stroke Social History Smoking and tobacco status: never smoked Alcohol intake: never History of recent travel: No Physical Exam Const: COMMON NORMALS: alert HENMT: COMMON NORMALS: atraumatic HEAD & SCALP: atraumatic MOUTH: moist mucous membranes not abnormal Eye: COMMON NORMALS: EOMs intact bilaterally and conjunctivae normal CONJUNCTIVA: Yes conjunctivae normal Neck/C-Spine: COMMON NORMALS: full ROM and supple Resp: COMMON NORMALS: normal respiratory effort and clear to auscultation bilaterally AUSCULTATION: clear to auscultation bilaterally Cardio: COMMON NORMALS: regular rate RATE: regular rate GI: COMMON NORMALS: Soft to palpation and non-tender PALPATION: Yes Soft to palpation Extremity: COMMON NORMALS: full ROM NARRATIVE EXTREMITY EXAM: 1+ edema b/l Neuro: SENSORIUM/ORIENTATION: Yes alert MOTOR EXAM: No Abnormal motor strength present and Other motor observations present (no focal motor deficits) Psych: COMMON NORMALS: speech normal SPEECH: Yes normal speech MOOD & AFFECT: Yes euthymic mood Course Vital Signs: Vital signs: Vital Signs Temperature 98.3 F 01/23/22 13:09 Pulse Rate 77 01/23/22 13:09 Respiratory Rate 16 01/23/22 13:09 Blood Pressure 138/71 01/23/22 13:09 Pulse Oximetry 90 01/23/22 13:09 [facility] - General Adult Medical Decision Making 86-year-old female presenting to the emergency room for evaluation of lab abnormality. On exam, patient's 1+ lower extremity edema. Rest of exam within normal limit. Lab work-up showed white count 12.9 today. Hemoglobin 9.0 down from 11.2 and patient was admitted for possible GI bleed and transferred to [facility]. Patient has no complaint of melena hematochezia. She was found to have a potassium of 2.6. I discussed with patient that she needs potassium replacement patient elects to stay in the hospital at this time. Disposition: admission Lab Data : 01/23/22 01:00 01/23/22 11:18 Radiology Impressions Chest X-Ray 01/22/22 17:44 IMPRESSION: No acute findings. Venous Duplex 01/23/22 01:04 IMPRESSION: No evidence of deep vein thrombosis. Laboratory Results WBC 12.9 10^3/uL (4.0-10.0) H 01/22/22 14:35 RBC 3.22 10^6/uL (4.1-5.3) L 01/22/22 14:35 Hgb 9.0 g/dL (11.5-15.3) L 01/22/22 14:35 Hct 26.6 % (37.0-47.0) L 01/22/22 14:35 MCV 82.6 fl (81-99) 01/22/22 14:35 MCH 28.0 pg (28.0-34.0) 01/22/22 14:35 MCHC 33.8 g/dL (30.0-36.0) 01/22/22 14:35 RDW 12.8 % (12.1-15.1) 01/22/22 14:35 Plt Count 472 10^3/cmm (130-400) H 01/22/22 14:35 MPV 9.3 fL (7.4-10.4) 01/22/22 14:35 Neut % (Auto) 68.0 % 01/22/22 14:35 Lymph % (Auto) 20.0 % 01/22/22 14:35 Duchesne % (Auto) 9.7 % 01/22/22 14:35 Eos % (Auto) 1.3 % 01/22/22 14:35 Baso % (Auto) 0.5 % 01/22/22 14:35 Reticulocyte % (Auto) 2.5 % (0.5-2.0) H 01/22/22 14:35 Neut # (Auto) 8.80 10^3/uL (1.8-7.7) H 01/22/22 14:35 Lymph # (Auto) 2.6 10^3/uL (0.8-4.8) 01/22/22 14:35 Duchesne # (Auto) 1.3 10^3/uL (0.2-0.9) H 01/22/22 14:35 Eos # (Auto) 0.2 10^3/uL (0.0-0.8) 01/22/22 14:35 Baso # (Auto) 0.1 10^3/uL (0.0-0.1) 01/22/22 14:35 Nucleated RBC % (auto) 0 % 01/22/22 14:35 Nucleated RBCs # 0.0 /100WBC 01/22/22 14:35 PT 14.00 SECONDS (12.1-14.9) 01/22/22 14:35 INR 1.05 (0.8-1.2) 01/22/22 14:35 APTT 25.5 SECONDS (23.9-36.7) 01/22/22 14:35 Sodium 135 mmol/L (136-145) L 01/22/22 14:35 Potassium 2.6 mmol/L (3.5-5.1) L* 01/22/22 14:35 Chloride 98 mmol/L (98-107) 01/22/22 14:35 Carbon Dioxide 23 mmol/L (22-29) 01/22/22 14:35 Anion Gap 16.6 (5-19) 01/22/22 14:35 BUN 32 mg/dL (8-23) H 01/22/22 14:35 Creatinine 0.8 mg/dL (0.5-0.9) 01/22/22 14:35 GFR Calculation Not Reportable 01/22/22 14:35 Glucose 176 mg/dL (65-115) H 01/22/22 14:35 Estimat Average Glucose 120 01/22/22 14:35 Hemoglobin A1c 5.8 % (4.0-6.0) 01/22/22 14:35 Calculated Osmolality 291 mOsm/kg (285-295) 01/22/22 14:35 Calcium 8.7 mg/dL (8.5-10.5) 01/22/22 14:35 Magnesium 2.0 mg/dL (1.7-2.3) 01/22/22 14:35 Iron 12 ug/dL (37-145) L 01/22/22 14:35 Ferritin 14 ng/mL (15-150) L 01/22/22 14:35 Total Bilirubin 0.2 mg/dL (0.15-1.2) 01/22/22 14:35 Direct Bilirubin 0.20 mg/dL (0.00-0.30) 01/22/22 14:35 GGT 16 U/L (5-36) 01/22/22 14:35 AST 13 U/L (0-32) 01/22/22 14:35 ALT 12 U/L (0-33) 01/22/22 14:35 Alkaline Phosphatase 65 IU/L (35-105) 01/22/22 14:35 C-Reactive Protein 3.0 mg/L (0.0-4.9) 01/22/22 14:35 NT-Pro-B Natriuret Pep 1107 pg/mL (0-450) H 01/22/22 14:35 Total Protein 6.2 g/dL (6.6-8.7) L 01/22/22 14:35 Albumin 3.9 g/dL (3.5-5.2) 01/22/22 14:35 Globulin 2.3 g/dL (1.3-4.6) 01/22/22 14:35 Lipase 28 U/L (13-60) 01/22/22 14:35 Procalcitonin 0.06 ng/mL (0-0.5) 01/22/22 14:35 Discharge Plan Discharge Patient Disposition: Admitted As Inpatient Admit Provider: Andrew Cabezas Clinical Impression: Anemia, Acute hypokalemia, Leg edema Condition: Stable Discharge Diet: Advance as tolerated Discharge Activity: Resume usual activity Coding Level of Care Code ED Mannequin Wig Maker for Chg Fwd Exam Comprehensive
--- NOTE | 2022-01-22 17:40 | ECG_ITS ---
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 Measurements Intervals [place] Rate: 69 P: 64 [place]: 186 QRS: -64 QRSD: 126 T: 89 QT: 340 QTc: 366 Interpretive Statements SINUS RHYTHM WITH OCCASIONAL VENTRICULAR PREMATURE COMPLEXES POSSIBLE RIGHT VENTRICULAR CONDUCTION DELAY [RSR (QR) IN V1/V2] LEFT ANTERIOR FASCICULAR BLOCK [QRS AXIS <= -45, QR IN I, RS IN II] No previous ECG available for comparison Electronically Signed On 01-23-2022 12:23:10 CDT by Aquiles Rose M.D. [email or web address]
--- NOTE | 2022-01-22 17:44 | XRR_ITS ---
PROCEDURE INFORMATION: Exam: XR Chest Exam date and time: 01/22/2022 6:09 PM Age: 86 years old Clinical indication: Other: Fluid overload TECHNIQUE: Imaging protocol: Radiologic exam of the chest. Views: 1 view. COMPARISON: CR Chest 2 views* [id number] 05/10/2017 12:42 PM FINDINGS: Lungs: Unremarkable. No consolidation. Pleural spaces: Unremarkable. No pleural effusion. No pneumothorax. Heart/Mediastinum: Unremarkable. No cardiomegaly. Bones/joints: Unremarkable. XR/XR chest 1V portable [id number] IMPRESSION: No acute findings.
[2022-01-22 17:53] VITALS: BP 132/58; PULSE 81; RESP 15; O2SAT 94
--- NOTE | 2022-01-22 18:13 | PM.HP ---
Providers/Chief Complaint Primary Care Provider: Arlin Aguilar APN Chief Complaint: PCP sent for anemia History of Present Illness Kassie Degroot is a 86 year old female with a past medical history of diverticulosis, hypothyroidism, chronic back pain on hydrocodone, history of EGDs, history of rectal impaction, recently transferred to [facility] for acute lower GI bleed, found to have significant rectal impaction resulting in colonic distention and bleeding no perforation, treated with colonoscopy, who presents [facility] due to concerns for anemia hemoglobin 9.0, and concerns for bilateral extremity edema. Patient tells me that when she was transferred up to [facility], she had an EGD and colonoscopy, she had a lot of stool in her colon, they felt was putting pressure in her colon and in rupture, but was causing bleeding, she had a disimpaction with a colonoscopy which helped significantly with her symptoms. She did not require any transfusions. She did have issues with hypokalemia. She was discharged on Lasix. She tells me that she is been having bowel movements, but becoming less frequent. She has been developing bilateral extremity edema, is on Lasix, she is not on any potassium replacement therapy. She continues to take her hydrocodone. Denies any chest pain, palpitations but does report shortness of breath with exertion. Also reports bilateral extremity edema. No calf pain, no calf swelling. Review of Systems Const: Denies: fever(s), chills, fatigue or malaise Eyes: Denies: change in vision Resp: Denies: productive cough, non-productive cough or wheezing GI: Denies: abdominal pain, nausea, vomiting, hematemesis or melena : Denies: dysuria Musc: Denies: neck pain Skin/Breast: Denies: rash Neuro: Denies: dizziness Medications/Allergies Home Medications Medication Instructions Recorded Confirmed Last Taken Type furosemide 40 mg tablet (Lasix) 40 mg PO BID 11/08/19 01/22/22 01/22/22 History hydrocodone 10 mg-acetaminophen 1 tab PO Q4H PRN tab 11/08/19 01/22/22 01/22/22 History 325 mg tablet levothyroxine 75 mcg tablet 75 mcg PO DAILY 11/08/19 01/22/22 01/22/22 History (Synthroid) Uric Acid Flush 1 tab PO DAILY 01/22/22 01/22/22 01/22/22 History escitalopram oxalate 10 mg tablet 10 mg PO DAILY 01/22/22 01/22/22 01/22/22 History famotidine 20 mg tablet (Pepcid) 20 mg PO DAILY 01/22/22 01/22/22 01/22/22 History megestrol 625 mg/5 mL (125 mg/mL) 625 mg PO DAILY PRN 01/22/22 01/22/22 Unknown History oral suspension Allergies Allergy/AdvReac Type Severity Reaction Status Date / Time codeine Allergy Unknown cant Verified 06/23/21 14:34 remember Sulfa (Sulfonamide Allergy Unknown cant Verified 06/23/21 14:34 Antibiotics) remember PFSH Acute PFSH: Medical History Chronic back pain Gastritis History of diverticulitis History of gout Hypothyroidism Spinal stenosis Surgical History H/O esophagogastroduodenoscopy (01/08/20) Severe gastritis, hiatal hernia, Schatzki ring History of Xs 3 History of cholecystectomy History of hip surgery left hip. around 2014 History of tonsillectomy Hx of colonoscopy (01/08/20) Diverticulosis Family History Father Cancer Mother Diabetes Other Anesthesia complication CAD (coronary artery disease) Lung disease Denies family history of Bleeding disorder Stroke Social History Smoking and tobacco status: never smoked Alcohol intake: never History of recent travel: No Vitals/I&O/Wt Last Vital Signs Temp 99.5 F 01/22/22 15:44 Pulse 75 01/22/22 15:44 Resp 16 01/22/22 15:44 BP 128/67 01/22/22 15:44 Pulse Ox 92 01/22/22 15:44 Weight last 48 hrs Weight 60.328 kg Physical Exam Const: COMMON NORMALS: no acute distress and patient oriented x3 HENMT: COMMON NORMALS: normocephalic HEAD & SCALP: normocephalic Neck/C-Spine: COMMON NORMALS: no JVD Resp: COMMON NORMALS: normal respiratory effort, No retractions, No use of accessory muscles and clear to auscultation bilaterally AUSCULTATION: clear to auscultation bilaterally Cardio: COMMON NORMALS: no JVD, regular rate, regular rhythm, S1 normal heart sound present and S2 normal heart sound present RATE: regular rate RHYTHM: regular rhythm HEART SOUNDS: S1 normal heart sound present and S2 normal heart sound present GI: COMMON NORMALS: Normal to inspection, nondistended, normoactive bowel sounds present, Soft to palpation, non-tender, No hepatosplenomegaly present, no masses and no bruits PALPATION: Yes Soft to palpation and Yes No hepatosplenomegaly present Extremity: COMMON NORMALS: no calf tenderness NARRATIVE EXTREMITY EXAM: Has 2+ pitting edema bilateral extremity Neuro: COMMON NORMALS: patient oriented x3, CN's II-XII intact bilaterally, moves all extremities and no focal motor deficits Psych: COMMON NORMALS: mental status grossly normal Data : 01/22/22 14:35 01/22/22 14:35 A&P Assessment and plan (1) Acute on chronic anemia: Status: Acute (2) Acute hypokalemia: Status: Acute (3) Fluid overload: Status: Acute Plan Acute hypokalemia, likely secondary to diuretic therapy, -Replace IV potassium 80 mEq -Recheck potassium at 4 AM Fluid overload, bilateral extremity edema, with complaints of shortness of breath -No crackles on exam, but does have 2+ pitting edema bilateral extremity -Start Lasix therapy at 4 AM after potassium replacement -Not requiring oxygen -BMP, troponin series, cardiac echo Acute on chronic anemia -Obtain records from [facility] -Sounds like a component of fecal impaction, slow GI bleed -Protonix, Carafate -Monitor hemoglobin -No acute need for transfusion, no blood or black stools reported -Bowel regimen, MiraLAX, Colace, lactulose DNR/DNI SCDs for DVT prophylaxis Anticoagulation relatively contraindicated given concern for GI bleed Work-up ordered including CMP, lipase, Pro-Maxime, CRP, lactate, A1c, chest x-ray, urinalysis, troponin series, BNP Attestations Medical Necessity Statement*: Patient requires hospitalization, outpatient with observation, for acute hypokalemia, fluid overload, acute on chronic anemia Coding Level of Care Code Acute Fitness Sales Consultant for [facility] Fwd Diagnoses Acute on chronic anemia D64.9 Acute hypokalemia E87.6 Fluid overload E87.70
[2022-01-22 18:14] LABS: Reticulocyte % 2.5 % (0.5-2.0)
[2022-01-22 18:15] LABS: Gamma Glutamyl Transferase 16 U/L (5-36)
[2022-01-22 18:25] LABS: NT Pro B Type Natriuretic Pept 1107 pg/mL (0-450); Procalcitonin 0.06 ng/mL (0-0.5)
[2022-01-22 18:36] LABS: Alanine Aminotransferase 12 U/L (0-33); Albumin Level 3.9 g/dL (3.5-5.2); Alkaline Phosphatase 65 IU/L (35-105); Aspartate Amino Transferase 13 U/L (0-32); Ferritin 14 ng/mL (15-150); Globulin 2.3 g/dL (1.3-4.6); Iron 12 ug/dL (37-145); Lipase 28 U/L (13-60); Total Bilirubin 0.2 mg/dL (0.15-1.2); Total Protein 6.2 g/dL (6.6-8.7)
[2022-01-22 18:48] LABS: LAB Peripheral Smear Sent for Review
[2022-01-22 19:07] LABS: Lactic Sepsis W/Reflex 1.5 mmol/L (0.5-2.2)
[2022-01-22 19:10] LABS: Troponin(5th) Baseline 27 ng/L (0-10)
[2022-01-22 19:17] LABS: Thyroid Stimulating Hormone 2.14 uIU/mL (0.27-4.20)
[2022-01-22] MEDS: pantoprazole 40 mg SDV IVP (19:34)
[2022-01-22] MEDS: polyethylene glycol 3350 Pkt 17 gm PO (19:34)
[2022-01-22] MEDS: docusate sodium 100 mg Capsule PO (19:34)
--- NOTE | 2022-01-22 19:40 | ECG_ITS ---
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 Measurements Intervals [place] Rate: 70 P: 26 SD: 178 QRS: -57 QRSD: 122 T: 33 QT: 419 QTc: 452 Interpretive Statements SINUS RHYTHM LEFT ANTERIOR FASCICULAR BLOCK [QRS AXIS <= -45, QR IN I, RS IN II] MODERATE ST DEPRESSION [0.05+ mV ST DEPRESSION] Compared to ECG 01/22/2022 19:43:17 Left anterior fascicular block now present ST (T wave) deviation now present Left-axis deviation no longer present Electronically Signed On 01-23-2022 12:35:07 CDT by Aquiles Rose M.D. [id number]
--- NOTE | 2022-01-22 19:48 | PC.NURSE ---
EKG done at 1940 and shown to ER doctor.
[2022-01-22 20:30] VITALS: BP 126/70; PULSE 75; RESP 18
[2022-01-22 20:43] LABS: Estmated Average Glucose 120; Hemoglobin A1C 5.8 % (4.0-6.0)
[2022-01-22 21:12] LABS: Troponin 5 2HR 29.72 ng/L (0-10)
[2022-01-22 21:14] LABS: Troponin 5 2HR Delta 2.72 ABS# (0-10)
[2022-01-22 22:00] VITALS: PULSE 76
[2022-01-22] MEDS: lidocaine 1% 5 ML in potassium chloride premix 100 ML 25 ML IV (22:17)
[2022-01-22] MEDS: sucralfate 1 gm Tablet PO (22:17)
--- NOTE | 2022-01-22 23:40 | ECG_ITS ---
[facility] Test Date: 2022-01-22 Pat Name: Kassie Degroot Department: Room: Gender: Female Vp Foundation: : 1935 Requested By: Andrew Cabezas Order Number: [id number] Florentin MD: Aquiles Rose M.D. Measurements Intervals [place] Rate: 71 P: 1 VT: 169 QRS: -36 QRSD: 126 T: 39 QT: 428 QTc: 466 Interpretive Statements SINUS RHYTHM LEFT AXIS DEVIATION [QRS AXIS < -30] POSSIBLE RIGHT VENTRICULAR CONDUCTION DELAY [RSR (QR) IN V1/V2] Compared to ECG 01/22/2022 18:02:17 Left-axis deviation now present Ventricular premature complex(es) no longer present Left anterior fascicular block no longer present Electronically Signed On 01-23-2022 12:34:45 CDT by Aquiles Rose M.D. [id number]
[2022-01-23] VITALS (7 sets, daily range): BP systolic 126–156; BP diastolic 67–74; PULSE 72–78; RESP 16–18; TEMP 36.7–36.8; O2SAT 90–96
[2022-01-23 00:06] LABS: Urine Appearance Turbid (CLEAR); Urine Color Yellow (Yellow)
[2022-01-23 00:07] LABS: Add Urine Culture? No; Add Urine Microscopic? YES; Amorphous Sediment Urine TRACE /hpf; Bacteria Urine TRACE /hpf; Bilirubin Urine Neg (Negative); Blood Urine 2+ (Negative); Glucose Urine UA Norm (Normal); Ketones Urine Negative (Negative); Leukocyte Esterase Urine Trace (Negative); Nitrate Urine Negative (Negative); Protein Urine Neg (Negative); Squamous Epithelial Cell Urine 0-4 /hpf (0-5); Urobilinogen Urine Norm (Negative); WBC Urine 0-4 /hpf (0-5); pH Urine 6 (5-7)
--- NOTE | 2022-01-23 01:04 | USR_ITS ---
PROCEDURE INFORMATION: Exam: US Duplex Lower Extremity Veins, Bilateral Exam date and time: 01/23/2022 1:15 AM Age: 86 years old Clinical indication: Edema, localized; Lower extremity, bilateral; Additional info: Lower extremity edema TECHNIQUE: Imaging protocol: Real-time Duplex ultrasound of the bilateral extremities with 2-D ballard scale, color Doppler flow and spectral waveform analysis with image documentation. Complete exam focused on the bilateral lower extremity veins. COMPARISON: CT abdomen pelvis w con* [id number] 12/26/2021 10:25 PM FINDINGS: Right deep veins: Unremarkable. The right common femoral, femoral, proximal profunda femoral, popliteal and visualized calf veins are patent without thrombus. Normal Doppler waveforms. Normal compressibility and/or augmentation response. Right superficial veins: Saphenofemoral junction is patent without thrombus. Left deep veins: Unremarkable. The left common femoral, femoral, proximal profunda femoral, popliteal and visualized calf veins are patent without thrombus. Normal Doppler waveforms. Normal compressibility and/or augmentation response. Left superficial veins: Saphenofemoral junction is patent without thrombus. Soft tissues: No significant soft tissue abnormalities. US/[place] [id number] IMPRESSION: No evidence of deep vein thrombosis.
--- NOTE | 2022-01-23 01:05 | USCV_ITS ---
Kassie eDgroot Age: 86 Gender: F : 1935 Exam Date: 01/23/2022 01:43 Ordering Phys: Andrew Cabezas MD Technologist: Patel Boo Exam Location: [facility] Indication: shortness of breath BP: 126 / 70 HR: 74 Rhythm: Sinus Technical Quality: Suboptimal MEASUREMENTS (Male / Female) Normal Values 2D ECHO LV Diastolic Diameter PLAX 3.0 cm 4.2 - 5.9 / 3.9 - 5.3 cm LV Systolic Diameter PLAX 2.0 cm IVS Diastolic Thickness 1.4 cm 0.6 - 1.0 / 0.6 - 0.9 cm IVS Systolic Thickness 1.2 cm LVPW Diastolic Thickness 1.5 cm 0.6 - 1.0 / 0.6 - 0.9 cm LVPW Systolic Thickness 1.6 cm LVOT Diameter 2.1 cm LV Ejection Fraction 2D Teich 62.0 % LV Ejection Fraction MOD 2C 57.5 % LV Ejection Fraction 2C AL 63.9 % LA Diameter 3.9 cm LA Width 5.1 cm LA Height 3.9 cm RA Width 4.1 cm RA Height 4.3 cm Aorta at Sinotubular Diameter 2.5 cm IVC Diameter 1.6 cm M-MODE Aortic Annulus Diameter 2.6 cm LA Ao Ratio MM 1.6 MV E Point Septal Separation 1.4 cm DOPPLER AV Peak Velocity 229.3 cm/s LVOT Peak Velocity 77.0 cm/s AV Area Cont Eq vti 1.2 cm squared AV Area Cont Eq pk 1.1 cm squared MV Area PHT 5.0 cm squared Mitral E to A Ratio 1.0 MV E' Velocity 65.0 cm/s Mitral E to MV E' Ratio 9.8 Mitral E to LV E' Lateral Ratio 8.8 Mitral E to LV E' Septal Ratio 11.1 TR Peak Velocity 250.6 cm/s TR Peak Gradient 25.1 mmHg TR Mean Velocity 177.5 cm/s TR Mean Gradient 15.2 mmHg TR Velocity Time Integral 75.9 cm Right Atrial Pressure 3.0 mmHg Pulmonary Artery Systolic Pressu 28.1 mmHg PV Peak Velocity 173.0 cm/s FINDINGS Left Ventricle Normal left ventricular size, systolic function and wall thickness, with no regional wall motion abnormalities. Grade I/IV diastolic dysfunction (abnormal relaxation filling pattern), normal to mildly elevated filling pressures. Left ventricular ejection fraction is estimated at 60 %. Right Ventricle Normal right ventricular size and systolic function. Normal right ventricular systolic pressure. Right Atrium The right atrium is normal in size. Left Atrium The left atrium is normal in size. Mitral Valve Structurally normal mitral valve without significant stenosis or prolapse. There is no mitral regurgitation. Aortic Valve Structurally normal aortic valve without significant sclerosis or stenosis. There is no aortic regurgitation. Tricuspid Valve Tricuspid valve not well visualized. Trace tricuspid valve regurgitation. Pulmonic Valve Pulmonic valve not well visualized. Pericardium Normal pericardium without effusion. Aorta Normal ascending aorta dimension. IVC Inferior vena cava not visualized. CONCLUSIONS Normal left ventricular size, systolic function and wall thickness, with no regional wall motion abnormalities. Grade I/IV diastolic dysfunction (abnormal relaxation filling pattern), normal to mildly elevated filling pressures. Left ventricular ejection fraction is estimated at 60 %. Dr. Aquiles Rose MD (Electronically Signed) Final Date: 23 January 2022 10:29 S
[2022-01-23 01:29] LABS: Basophils # 0.1 10^3/uL (0.0-0.1); Basophils % 0.5 %; Eosinophils # 0.3 10^3/uL (0.0-0.8); Eosinophils % 1.7 %; Hematocrit 28.2 % (37.0-47.0); Hemoglobin 9.3 g/dL (11.5-15.3); Lymphocytes # 3.7 10^3/uL (0.8-4.8); Lymphocytes % 23.8 %; Mean Corpuscular Volume 84.9 fl (81-99); Mean Platelet Volume 9.4 fL (7.4-10.4); Monocytes # 1.6 10^3/uL (0.2-0.9); Monocytes % 10.6 %; Neutrophils % 62.8 %; Nucleated Red Blood Cells % 0 %; Platelet Count 505 10^3/cmm (130-400); Red Blood Count 3.32 10^6/uL (4.1-5.3); White Blood Count 15.5 10^3/uL (4.0-10.0)
[2022-01-23 01:50] LABS: Troponin 5 6HR 35.66 ng/L (0-10)
[2022-01-23 01:51] LABS: Troponin 5 6HR Delta 8.66 ng/L (0-12)
[2022-01-23 01:57] LABS: Alanine Aminotransferase 11 U/L (0-33); Albumin Level 3.9 g/dL (3.5-5.2); Alkaline Phosphatase 66 IU/L (35-105); Anion Gap 14.7 (5-19); Aspartate Amino Transferase 14 U/L (0-32); Blood Urea Nitrogen 26 mg/dL (8-23); Calcium 8.6 mg/dL (8.5-10.5); Carbon Dioxide 26 mmol/L (22-29); Chloride 99 mmol/L (98-107); Globulin 2.4 g/dL (1.3-4.6); Glucose 127 mg/dL (65-115); Magnesium 2.1 mg/dL (1.7-2.3); NT Pro B Type Natriuretic Pept 1089 pg/mL (0-450); Osmolality Calculated 290 mOsm/kg (285-295); Phosphorus 2.8 mg/dL (2.5-4.5); Sodium 137 mmol/L (136-145); Total Bilirubin 0.2 mg/dL (0.15-1.2); Total Protein 6.3 g/dL (6.6-8.7)
[2022-01-23 02:02] LABS: Potassium 2.7 mmol/L (3.5-5.1)
[2022-01-23] MEDS: lidocaine 1% 5 ML in potassium chloride premix 100 ML 25 ML IV (02:40)
[2022-01-23] MEDS: FUROsemide 10 mg/mL SDV 4mL 40 MG IVP ×2 (04:55→13:02)
[2022-01-23] MEDS: pantoprazole 40 mg SDV IVP (05:29)
[2022-01-23] MEDS: sucralfate 1 gm Tablet PO ×2 (06:03→13:02)
[2022-01-23] MEDS: levothyroxine 75 mcg Tablet PO (06:04)
[2022-01-23] MEDS: escitalopram 10 mg Tablet PO (09:35)
[2022-01-23] MEDS: lactulose oral liq 20 gm/30 mL UDC 10 GM PO (09:36)
[2022-01-23] MEDS: docusate sodium 100 mg Capsule PO (09:36)
[2022-01-23] MEDS: polyethylene glycol 3350 Pkt 17 gm PO (09:36)
[2022-01-23] MEDS: cefTRIAXone 1,000 MG in sodium chloride 0.9% (plus) 50 ML 100 MG IV (11:01)
[2022-01-23 11:53] LABS: Blood Urea Nitrogen 20 mg/dL (8-23); Calcium 8.7 mg/dL (8.5-10.5); Carbon Dioxide 24 mmol/L (22-29); Chloride 100 mmol/L (98-107); Glucose 180 mg/dL (65-115); Magnesium 2.1 mg/dL (1.7-2.3); Osmolality Calculated 293 mOsm/kg (285-295); Phosphorus 2.6 mg/dL (2.5-4.5); Sodium 138 mmol/L (136-145)
[2022-01-23 11:55] LABS: Anion Gap 17.1 (5-19); Potassium 3.1 mmol/L (3.5-5.1)
--- NOTE | 2022-01-23 12:54 | P.DS_ITS ---
Discharge Providers Date of Admission: 01/22/22 18:04 Date of Discharge: January 23, 2022 Attending Provider at Admission: Andrew Cabezas MD Attending Provider at Discharge: Andrew Cabezas MD Primary Care Provider: Arlin Aguilar APN Diagnoses at Discharge Discharge Diagnosis (1) Acute on chronic anemia: Status: Acute (2) Acute hypokalemia: Status: Acute (3) Fluid overload: Status: Acute Reason for Visit Reason for Visit: PCP sent for anemia Hospital Course Hospital Course Kassie eDgroot is a 86 year old female with a past medical history of diverticulosis, hypothyroidism, chronic back pain on hydrocodone, history of EGDs, history of rectal impaction, recently transferred to [facility] for acute lower GI bleed, found to have significant rectal impaction resulting in colonic distention and bleeding no perforation, treated with colonoscopy, who presents [facility] due to concerns for anemia hemoglobin 9.0, and concerns for bilateral extremity edema. Patient was admitted to [facility] for bilateral extremity edema, likely fluid overload, managed with Lasix as inpatient, clinically improved, discharged on Lasix therapy 40 twice daily at home Patient was found to also be hypokalemic on hospitalization, requiring IV replacement, she has not been taking potassium with her Lasix therapy. I have discharged her with potassium replacement with her Lasix therapy. Patient was also found to have acute on chronic anemia, her baseline hemoglobin is unknown from her [facility] hospitalization, but I was told she did not require any iron transfusion. Or blood transfusion. Hemoglobin discharge 9.3, Hemoccult was positive, follow-up with primary care provider with repeat hemoglobin I was told by patient that during her [facility] hospitalization, she had an EGD which was unremarkable, she had significant fecal impaction so a colonoscopy was deployed to relieve her fecal impaction. Here her stool Hemoccults were positive, hemoglobin stable at 9.3 I have discharged her on Protonix. Ideally she should likely have a repeat colonoscopy by Dr. Yi I will refer her to be followed up, Patient was also found to have iron deficiency anemia, received IV Venofer here as inpatient, will receive IV Venofer as outpatient with follow with Dr. Warren During her hospitalization she was found to have a UTI discharged on ciprofloxacin Physical Exam Const: COMMON NORMALS: no acute distress and patient oriented x3 Resp: COMMON NORMALS: normal respiratory effort, No retractions, No use of accessory muscles and clear to auscultation bilaterally AUSCULTATION: clear to auscultation bilaterally Cardio: COMMON NORMALS: regular rate, regular rhythm, S1 normal heart sound present and S2 normal heart sound present RATE: regular rate RHYTHM: regular rhythm HEART SOUNDS: S1 normal heart sound present and S2 normal heart sound present GI: COMMON NORMALS: Normal to inspection, nondistended, normoactive bowel sounds present, Soft to palpation and non-tender PALPATION: Yes Soft to palpation Extremity: COMMON NORMALS: no pedal edema Neuro: COMMON NORMALS: patient oriented x3 Psych: COMMON NORMALS: mental status grossly normal Discharge Data Studies Completed and Pending Completed Studies During Hospitalization Category Date Time Status XR chest 1V portable [id number] Stat Exams 01/22/22 17:44 [place] [id number] Urgent Ultrasound 01/23/22 01:04 Completed CV. echo complete* [id number] Routine Ultrasound 01/23/22 01:05 Completed Pending at discharge Category Date Time Status Complete Blood Count w/Auto AM LABS Lab 01/24/22 04:00 Ordered Complete Blood Count w/Auto AM LABS Lab 01/25/22 04:00 Ordered Comprehensive Metabolic Panel AM LABS Lab 01/24/22 04:00 Ordered Comprehensive Metabolic Panel AM LABS Lab 01/25/22 04:00 Ordered Magnesium AM LABS Lab 01/24/22 04:00 Ordered Magnesium AM LABS Lab 01/25/22 04:00 Ordered Phosphorus AM LABS Lab 01/24/22 04:00 Ordered Phosphorus AM LABS Lab 01/25/22 04:00 Ordered Radiology Impressions Chest X-Ray 01/22/22 17:44 IMPRESSION: No acute findings. Venous Duplex 01/23/22 01:04 IMPRESSION: No evidence of deep vein thrombosis. Laboratory Results WBC 15.5 10^3/uL (4.0-10.0) H 01/23/22 01:00 RBC 3.32 10^6/uL (4.1-5.3) L 01/23/22 01:00 Hgb 9.3 g/dL (11.5-15.3) L 01/23/22 01:00 Hct 28.2 % (37.0-47.0) L 01/23/22 01:00 MCV 84.9 fl (81-99) 01/23/22 01:00 MCH 28.0 pg (28.0-34.0) 01/23/22 01:00 MCHC 33.0 g/dL (30.0-36.0) 01/23/22 01:00 RDW 13.0 % (12.1-15.1) 01/23/22 01:00 Plt Count 505 10^3/cmm (130-400) H 01/23/22 01:00 MPV 9.4 fL (7.4-10.4) 01/23/22 01:00 Neut % (Auto) 62.8 % 01/23/22 01:00 Lymph % (Auto) 23.8 % 01/23/22 01:00 [place] % (Auto) 10.6 % 01/23/22 01:00 Eos % (Auto) 1.7 % 01/23/22 01:00 Baso % (Auto) 0.5 % 01/23/22 01:00 Reticulocyte % (Auto) 2.5 % (0.5-2.0) H 01/22/22 14:35 Neut # (Auto) 9.70 10^3/uL (1.8-7.7) H 01/23/22 01:00 Lymph # (Auto) 3.7 10^3/uL (0.8-4.8) 01/23/22 01:00 [place] # (Auto) 1.6 10^3/uL (0.2-0.9) H 01/23/22 01:00 Eos # (Auto) 0.3 10^3/uL (0.0-0.8) 01/23/22 01:00 Baso # (Auto) 0.1 10^3/uL (0.0-0.1) 01/23/22 01:00 Nucleated RBC % (auto) 0 % 01/23/22 01:00 Nucleated RBCs # 0.0 /100WBC 01/23/22 01:00 PT 14.00 SECONDS (12.1-14.9) 01/22/22 14:35 INR 1.05 (0.8-1.2) 01/22/22 14:35 APTT 25.5 SECONDS (23.9-36.7) 01/22/22 14:35 Sodium 138 mmol/L (136-145) 01/23/22 11:18 Potassium 3.1 mmol/L (3.5-5.1) L 01/23/22 11:18 Chloride 100 mmol/L (98-107) 01/23/22 11:18 Carbon Dioxide 24 mmol/L (22-29) 01/23/22 11:18 Anion Gap 17.1 (5-19) 01/23/22 11:18 BUN 20 mg/dL (8-23) 01/23/22 11:18 Creatinine 0.7 mg/dL (0.5-0.9) 01/23/22 11:18 GFR Calculation Not Reportable 01/23/22 11:18 Glucose 180 mg/dL (65-115) H 01/23/22 11:18 Estimat Average Glucose 120 01/22/22 14:35 Hemoglobin A1c 5.8 % (4.0-6.0) 01/22/22 14:35 Calculated Osmolality 293 mOsm/kg (285-295) 01/23/22 11:18 Lactic Acid 1.5 mmol/L (0.5-2.2) 01/22/22 18:27 Calcium 8.7 mg/dL (8.5-10.5) 01/23/22 11:18 Phosphorus 2.6 mg/dL (2.5-4.5) 01/23/22 11:18 Magnesium 2.1 mg/dL (1.7-2.3) 01/23/22 11:18 Iron 12 ug/dL (37-145) L 01/22/22 14:35 Ferritin 14 ng/mL (15-150) L 01/22/22 14:35 Total Bilirubin 0.2 mg/dL (0.15-1.2) 01/23/22 01:00 Direct Bilirubin 0.20 mg/dL (0.00-0.30) 01/22/22 14:35 GGT 16 U/L (5-36) 01/22/22 14:35 AST 14 U/L (0-32) 01/23/22 01:00 ALT 11 U/L (0-33) 01/23/22 01:00 Alkaline Phosphatase 66 IU/L (35-105) 01/23/22 01:00 Troponin T Baseline 27 ng/L (0-10) H 01/22/22 18:27 Troponin T 120 Minute 29.72 ng/L (0-10) H 01/22/22 20:27 Delta Troponin T 2.72 ABS# (0-10) 01/22/22 20:27 Troponin T Hi Sens 6Hr 35.66 ng/L (0-10) H 01/23/22 01:00 Troponin T Hi Sens 6Hr Delta 8.66 ng/L (0-12) 01/23/22 01:00 C-Reactive Protein 3.0 mg/L (0.0-4.9) 01/22/22 14:35 NT-Pro-B Natriuret Pep 1089 pg/mL (0-450) H 01/23/22 01:00 Total Protein 6.3 g/dL (6.6-8.7) L 01/23/22 01:00 Albumin 3.9 g/dL (3.5-5.2) 01/23/22 01:00 Globulin 2.4 g/dL (1.3-4.6) 01/23/22 01:00 Lipase 28 U/L (13-60) 01/22/22 14:35 Procalcitonin 0.06 ng/mL (0-0.5) 01/22/22 14:35 TSH 2.14 uIU/mL (0.27-4.20) 01/22/22 18:27 Urine Color Yellow (Yellow) 01/22/22 23:20 Urine Appearance Turbid (CLEAR) 01/22/22 23:20 Urine pH 6 (5-7) 01/22/22 23:20 Ur Specific Outing 1.010 (1.005-1.030) 01/22/22 23:20 Urine Protein Neg (Negative) 01/22/22 23:20 Urine Glucose (UA) Norm (Normal) 01/22/22 23:20 Urine Ketones Negative (Negative) 01/22/22 23:20 Urine Blood 2+ (Negative) H 01/22/22 23:20 Urine Nitrate Negative (Negative) 01/22/22 23:20 Urine Bilirubin Neg (Negative) 01/22/22 23:20 Urine Urobilinogen Norm mg/dL (Negative) 01/22/22 23:20 Ur Leukocyte Esterase Trace (Negative) H 01/22/22 23:20 Urine RBC 5-10 /hpf (0-2) H 01/22/22 23:20 Urine WBC 0-4 /hpf (0-5) H 01/22/22 23:20 Ur Squamous Epith Cells 0-4 /hpf (0-5) H 01/22/22 23:20 Amorphous Sediment Trace /hpf 01/22/22 23:20 Urine Bacteria Trace /hpf (NONE) 01/22/22 23:20 Vitals Last Vital Signs Temp 98.3 F 01/23/22 12:00 Pulse 77 01/23/22 12:00 Resp 16 01/23/22 12:00 BP 138/71 01/23/22 12:00 Pulse Ox 90 01/23/22 12:00 Discharge Plan Discharge Patient Disposition: Home Condition: Stable Prescriptions: New Venofer 200 mg iron/10 mL solution See Rx Instructions .ROUTE .COMPLEX 4 Days Qty: 40 0RF Rx Instructions: 200 mg intravenously ;administer over 30 mins 4 doses remaining Give on January 26, , , docusate sodium 100 mg Capsule 100 mg PO BID 30 Days Qty: 60 0RF polyethylene glycol 3350 17 gram Powder In Packet 17 g PO DAILY PRN (Reason: constipation) 30 Days Qty: 30 0RF pantoprazole [Protonix] 40 mg tablet,delayed release (DR/EC) 40 mg PO BID 30 Days Qty: 60 0RF ciprofloxacin HCl [Cipro] 250 mg tablet 250 mg PO BID 5 Days Qty: 10 0RF potassium chloride [Klor-Con M20] 20 mEq tablet,ER particles/crystals 20 meq PO BID 30 Days Qty: 60 0RF Rx Instructions: with potassium Continued levothyroxine [Synthroid] 75 mcg tablet 75 mcg PO DAILY 0RF hydrocodone-acetaminophen 10-325 mg tablet 1 tab PO Q4H PRN (Reason: Pain) 0RF escitalopram oxalate 10 mg tablet 10 mg PO DAILY 0RF megestrol 625 mg/5 mL (125 mg/mL) suspension 625 mg PO DAILY PRN (Reason: appetite) 0RF Uric Acid Flush 1 tab PO DAILY 0RF furosemide [Lasix] 40 mg tablet 40 mg PO BID 30 Days Qty: 60 0RF Discontinued Pepcid 20 mg Tablet 20 mg PO DAILY 0RF Discharge Orders: Discharge Order (Routine); Ordered 01/23/22 Ordered By: Andrew Cabezas Referrals: Davie Warren MD [Hospitalist] - 4-7 days (Iron deficiency anemia) Aguilar,Arlin, SILVERSMITH APPRENTICE [Primary Care Provider] - 4-7 days Discharge Diet: Advance as tolerated Discharge Activity: Resume usual activity Patient Instructions: Ciprofloxacin (By mouth), Laxative, Stool Softeners (By mouth) (Doculax, Colace, Colace Clear, DSS), Pantoprazole (By mouth), Opioid Safety Activity Restrictions/Additional Instructions: - I have prescribed you IV Venofer here which is IV iron -You can go on January 26, , , for your 4 remaining doses to the outpatient site for infusion -Please follow-up with Dr. Warren for hematology iron deficiency anemia -For your potassium, take 20 mEq twice a day with your Lasix therapy -Ciprofloxacin for UTI -Bowel regimen including MiraLAX once a day, with Colace twice a day -Follow-up with primary care provider would recheck blood work in 1 week Discharge Attestations Time Spent in Discharge Care*: less than 30 min Quality Metrics Clinical Quality Measures [ No reported AMI, CVA or VTE this stay] Coding Level of Care Code Acute Chg FW DC note Diagnoses Acute on chronic anemia D64.9 Acute hypokalemia E87.6 Fluid overload E87.70
[2022-01-23] MEDS: iron sucrose 200 MG in sodium chloride 0.9% (100 ml) 100 ML 220 MG IV (13:01)
[2022-01-23] MEDS: potassium chloride ER 20 mEq Tablet 40 MEQ PO (13:02)
[2022-01-23] MEDS: potassium chloride ER 20 mEq Tablet PO (13:02)
== END 2022-01-23 14:00 | disposition home or self-care (01) ==
LOC: ER 18:11 → MEDSURG 20:00
PROVIDERS: Admitting Provider Family Medicine; Emergency Provider Emergency Medicine; PCP Nurse Practitioner Family; Visit Provider Family Medicine
DX: D50.9 Iron deficiency anemia, unspecified (principal); E87.70 Fluid overload, unspecified; E87.6 Hypokalemia; N39.0 Urinary tract infection, site not specified; K56.41 Fecal impaction; R60.0 Localized edema; E03.9 Hypothyroidism, unspecified; Z66 Do not resuscitate; G89.29 Other chronic pain; M54.9 Dorsalgia, unspecified; Z79.891 Long term (current) use of opiate analgesic
CPT/HCPCS: 36415; 71045; 80048; 80053; 80076; 80503; 81001; 81003; 82274; 82728; 82977; 83036; 83540; 83605; 83690; 83735; 83880; 84100; 84145; 84443; 84484; 85025; 85045; 85610; 85730; 86140; 93005; 93306; 93970; 94664; 96365; 96366; 96367; 96375; 96376; 99285; C9113; G0378; J0696; J1756; J1940; J3480

== ENCOUNTER 2022-02-04 10:43 | Outpatient (RCR) | payer MEDICARE, SELFPAY ==
[2022-01-27 12:22] VITALS: BP 101/49; PULSE 65; RESP 18; TEMP 36.1; O2SAT 96
[2022-01-27] MEDS: iron sucrose 200 MG in sodium chloride 0.9% (100 ml) 100 ML 220 MG IV (12:36)
[2022-01-29 10:15] VITALS: BP 99/52; PULSE 74; RESP 18; TEMP 36.4; O2SAT 95
[2022-01-29] MEDS: iron sucrose 200 MG in sodium chloride 0.9% (100 ml) 100 ML 220 MG IV (10:30)
[2022-02-02] MEDS: iron sucrose 200 MG in sodium chloride 0.9% (100 ml) 100 ML 220 MG IV (11:10)
[2022-02-02 11:12] VITALS: BP 130/65; PULSE 70; RESP 18; TEMP 36.6; O2SAT 97
[2022-02-04] MEDS: iron sucrose 200 MG in sodium chloride 0.9% (100 ml) 100 ML 220 MG IV (11:07)
[2022-02-04 11:09] VITALS: BP 89/67; PULSE 69; RESP 18; TEMP 36.8; O2SAT 96
== END 2022-02-21 23:59 | disposition home or self-care (01) ==
LOC: GILAB 10:43
PROVIDERS: PCP Nurse Practitioner Family; Visit Provider Family Medicine
DX: D64.9 Anemia, unspecified (principal)
CPT/HCPCS: 96365; J1756

== ENCOUNTER 2022-02-10 09:56 | Oncology outpatient (recurring) (ONCR) | payer MEDICARE, SELFPAY ==
[2022-02-10 12:21] LABS: Erythrocyte Sedimentation Rate 10 mm/hr (0-15)
[2022-02-10 12:25] LABS: Basophils # 0.1 10^3/uL (0.0-0.1); Basophils % 1.1 %; Eosinophils # 0.1 10^3/uL (0.0-0.8); Eosinophils % 1.1 %; Hematocrit 37.8 % (37.0-47.0); Hemoglobin 11.3 g/dL (11.5-15.3); Lymphocytes # 2.1 10^3/uL (0.8-4.8); Lymphocytes % 24.8 %; Mean Corpuscular HGB Conc 29.9 g/dL (30.0-36.0); Mean Corpuscular Hemoglobin 28.1 pg (28.0-34.0); Mean Platelet Volume 9.5 fL (7.4-10.4); Monocytes # 0.8 10^3/uL (0.2-0.9); Monocytes % 10.1 %; Neutrophils # 5.22 10^3/uL (1.8-7.7); Neutrophils % 62.5 %; Nucleated Red Blood Cells % 0 %; Platelet Count 400 10^3/cmm (130-400); Red Blood Count 4.02 10^6/uL (4.1-5.3); Red Cell Distribution Width 17.6 % (12.1-15.1); White Blood Count 8.3 10^3/uL (4.0-10.0)
[2022-02-10 13:05] LABS: Alanine Aminotransferase 9 U/L (0-33); Albumin Level 3.9 g/dL (3.5-5.2); Alkaline Phosphatase 63 IU/L (35-105); Chloride 100 mmol/L (98-107); Ferritin 244 ng/mL (15-150); Iron 82 ug/dL (37-145); Potassium 3.9 mmol/L (3.5-5.1); Sodium 135 mmol/L (136-145)
[2022-02-10 13:19] LABS: Reticulocyte % 2.4 % (0.5-2.0)
[2022-02-10 14:46] LABS: Anion Gap 20.9 (5-19); Blood Urea Nitrogen 19 mg/dL (8-23); Calcium 9.2 mg/dL (8.5-10.5); Carbon Dioxide 18 mmol/L (22-29); Creatinine Clr Calc Pharmacy 39.9947; Globulin 2.5 g/dL (1.3-4.6); Glucose 85 mg/dL (65-115); Magnesium 2.6 mg/dL (1.7-2.3); Osmolality Calculated 282 mOsm/kg (285-295); Total Bilirubin 0.3 mg/dL (0.15-1.2); Total Protein 6.4 g/dL (6.6-8.7)
[2022-02-10 14:52] LABS: Aspartate Amino Transferase 22 U/L (0-32); Percent Saturation 21.9 % (20-50); Total Iron Binding Capacity 373 mcg/dl; Unsaturated Iron Binding 291 ug/dL (112-347)
[2022-02-10 21:29] LABS: LAB Peripheral Smear Sent for Review
== END 2022-02-10 23:59 | disposition home or self-care (01) ==
PROVIDERS: PCP Nurse Practitioner Family; Visit Provider Internal Medicine Medical Oncology
DX: D50.0 Iron deficiency anemia secondary to blood loss (chronic) (principal); Z79.899 Other long term (current) drug therapy
CPT/HCPCS: 36415; 80053; 82728; 83540; 83550; 83735; 85025; 85045; 85651; 86431; 99204; 99214

== ENCOUNTER 2022-02-11 | Oncology outpatient (recurring) (ONCR) | payer MEDICARE, SELFPAY | END 2022-02-11 23:59 | disposition home or self-care (01) | LOC: ONCMED 02-22 16:24 | PROVIDERS: PCP Nurse Practitioner Family; Visit Provider Internal Medicine Medical Oncology | DX: D50.0 Iron deficiency anemia secondary to blood loss (chronic) (principal) | CPT/HCPCS: 82270 ==

== ENCOUNTER 2022-10-18 10:55 | Outpatient (CLI) | payer MEDICARE, SELFPAY ==
--- NOTE | 2022-10-18 11:13 | FL_ITS ---
WS: [id number] Exam: FL barium swallow modifd [id number] Date/Time of Exam: 10/18/2022 11:25 AM Reason For Exam: Other dysphagia Fluoroscopy time: 3min [id number] minutes # of spot films: 0 The exam was performed in conjunction with the speech therapy service. The patient tolerated thin liquid, nectar consistency, pudding consistency and solid barium mixture f oodstuffs without aspiration or penetration. The patient ingested a barium tablet without difficulty or complication. FL/FL barium swallow modifd [id number] IMPRESSION: 1. No sign of aspiration or penetration into the laryngeal inlet. A separate report of the recommendations and findings will follow from the [facility] therapy service.
== END 2022-10-18 10:56 | disposition home or self-care (01) ==
LOC: RAD 11:00
PROVIDERS: PCP Internal Medicine; Visit Provider Internal Medicine
DX: R13.19 Other dysphagia (principal)
CPT/HCPCS: 74230; 92611

== ENCOUNTER 2022-10-22 10:03 | Outpatient (CLI) | payer MEDICARE, SELFPAY ==
--- NOTE | 2022-10-22 10:18 | NM_ITS ---
WS: [id number] NUCLEAR MEDICINE GASTRIC STUDY CLINICAL INFORMATION: DELAYED GASTRIC TRANSIT TECHNIQUE: Following oral ingestion of cooked egg mixed with 0.90 mCi technetium 99m sulfur colloid, anterior images of the stomach were obtained over the course of 90 minutes. Activity curve was perfor med over the course of 90 minutes with linear regression analysis. COMPARISON: None. FINDINGS: T1 half 125 minutes Normal initial gastric activity. Slightly delayed gastric emptying with 50% emptying at 125 minutes. This is slightly out of range suspicious for delayed gastric emptying/gastroparesis. NM/[place] [id number] IMPRESSION: Slightly delayed gastric emptying compatible with gastroparesis *Normal median T1 half 90 minutes for solid egg meal (45-110 minutes).
== END 2022-10-22 10:04 | disposition home or self-care (01) ==
PROVIDERS: PCP Internal Medicine; Visit Provider Internal Medicine
DX: K30 Functional dyspepsia (principal)
CPT/HCPCS: 78264; A9541

== ENCOUNTER 2022-12-09 11:45 | Outpatient (CLI) | payer MEDICARE, SELFPAY ==
--- NOTE | 2022-12-09 11:54 | CT_ITS ---
WS: [id number] CT ABDOMEN AND PELVIS NONCONTRAST HISTORY: DIARRHEA/ABDOMINAL PAIN TECHNIQUE: Imaging performed through the abdomen and pelvis. Coronal and sagittal reformats are submi tted. All CT scans at [facility] use at least one of these dose optimization techniques: auto mated exposure control; mA and/or kV adjustment per patient size (includes targeted exams where dose is matched to clinical indication); or iterative reconstruction. DLP: 393.54 mGy.cm COMPARISON: 12/26/2021 Lower thorax: Mild dependent changes at the lung bases. Normal size heart. Calcification along the mi tral annular valve plane. Small hiatal hernia. Liver: Normal size liver. No mass or bile duct dilatation. Gallbladder: Prior cholecystectomy. Pancreas: Normal size and attenuation. Normal pancreatic duct. No pancreatitis or mass. Spleen: Normal. Adrenal glands: Normal. No mass. Right kidney: Normal size kidney with no mass or hydronephrosis. Left kidney: Normal size kidney with no mass or hydronephrosis. Aorta: Moderate to severe atherosclerosis abdominal aorta. No aneurysm. Atherosclerosis continues int o the common iliac arteries. No free fluid, intraperitoneal air or significant lymphadenopathy. GI tract: Well-distended stomach and small bowel. Numerous scattered diverticula in the sigmoid colon without acute diverticulitis. Appendix is not identified. No secondary findings of appendicitis. Abdominal wall: Negative. No hernia. Pelvis: Prior hysterectomy. Well-distended urinary bladder. No free fluid or adenopathy. Osseous structures: Status post LEFT hip arthroplasty. Moderate to severe LEFT curvature lumbar spine with asymmetric disc space narrowing and vacuum disc phenomenon. L5 anterolisthesis by 8.[address]/CT abdomen pelvis wo con [id number] IMPRESSION: 1. No acute abdominal or pelvic abnormalities. 2. Prior hysterectomy. 3. Distal colon diverticulosis without acute diverticulitis. 4. Prior cholecystectomy. 5. Moderate atherosclerosis aorta.
== END 2022-12-09 11:46 | disposition home or self-care (01) ==
LOC: RAD 11:49
PROVIDERS: PCP Internal Medicine; Visit Provider Nurse Practitioner Family
DX: R19.7 Diarrhea, unspecified (principal); R10.9 Unspecified abdominal pain; K57.30 Diverticulosis of large intestine without perforation or abscess without bleeding; I70.0 Atherosclerosis of aorta; Z90.49 Acquired absence of other specified parts of digestive tract; Z90.710 Acquired absence of both cervix and uterus
CPT/HCPCS: 74176

== ENCOUNTER 2023-08-28 01:16 | Observation (INO) | payer MEDICARE, SELFPAY ==
[2023-08-28] VITALS (35 sets, daily range): BP systolic 111–170; BP diastolic 61–92; PULSE 59–74; RESP 14–18; TEMP 36.4–36.8; O2SAT 88–98; BMI 27.4
--- NOTE | 2023-08-28 01:34 | XRR_ITS ---
PROCEDURE INFORMATION: Exam: XR Abdomen Exam date and time: 08/28/2023 1:37 AM Age: 87 years old Clinical indication: Abdominal pain; Prior surgery; Surgery date: 6+ months; Surgery type: Gb. Hysterectomy. Ton. Patient HX: Diffuse abd pain with constipation. TECHNIQUE: Imaging protocol: Radiologic exam of the abdomen. Views: Frontal supine view of the abdomen. 1 View. COMPARISON: CT abdomen pelvis con [id number] 12/09/2022 12:33 PM FINDINGS: Gastrointestinal tract: No dilated bowel loops. Large amount of stool noted in the distal colon/rectum. Bones/joints: Left hip prosthesis. Degenerative changes the lumbar spine. XR/XR KUB portable [id number] IMPRESSION: No dilated bowel loops. Large amount of stool noted in the distal colon/rectum.
[2023-08-28 01:54] LABS: Basophils # 0.1 10^3/uL (0.0-0.1); Basophils % 0.3 %; Eosinophils % 0.1 %; Hematocrit 49.5 % (36-47); Lymphocytes # 1.2 10^3/uL (0.8-4.8); Lymphocytes % 4.9 %; Mean Corpuscular HGB Conc 34.5 g/dL (30-55); Mean Corpuscular Hemoglobin 30.8 pg (27-33); Mean Corpuscular Volume 89.2 fl (85-98); Mean Platelet Volume 8.8 fL (7.4-10.4); Monocytes # 1.8 10^3/uL (0.2-0.9); Monocytes % 7.4 %; Neutrophils # 20.53 10^3/uL (1.8-7.7); Neutrophils % 86.7 %; Nucleated Red Blood Cells % 0 %; Platelet Count 399 10^3/cmm (157-399); Red Blood Count 5.55 10^6/uL (3.85-5.65); Red Cell Distribution Width 12.5 % (12.1-15.1); White Blood Count 23.66 10^3/uL (3.29-11.43)
[2023-08-28] MEDS: sodium chloride 0.9% 1,000 ML 999 ML IV (02:20)
--- NOTE | 2023-08-28 02:23 | PC.NURSE ---
Per pt's granddaughter she called her on Tuesday asking for medication to help with constipation. Pt's granddaughter stated she gave her an enema on Tuesday and she had a large BM. Pt's granddaughter stated she took 1/2 a bottle of Magnesium Citrate Tuesday afternoon with no relief. THey did another enema this evening but she could not retain the solution. Pt also had two Suppositories.
--- NOTE | 2023-08-28 02:32 | ED_ITS ---
HPI - Abdominal Pain 2 General: Chief Complaint: Abdominal Pain Stated Complaint: ABD PAIN Time Seen by Provider: 08/28/23 01:35 History of Present Illness: 87-year-old female with a history of abd ominal pain, constipation, generalized weakness, and some mild mental status changes over the last 48 hours or so. She is on chronic pain medication. For the constipation, they have tried magnesium citrate, suppositories and enemas at home without any relief. No fever at home. No cough or congestion. No vomiting. Associated Symptoms: Reports nausea; Denies chills, fever(s) and vomiting Review of Systems 2 Const: Denies: fever(s) or chills Eyes: Denies: change in vision ENMT: Denies: throat pain Card: Denies: chest pain or palpitations Resp: Reports: dyspnea and non-productive cough GI: Reports: abdominal pain and nausea; Denies: vomiting : Denies: flank pain Musc: Denies: neck pain Skin/Breast: Reports: rash Psych: Reports: anxiety PFSH ED 2 PFSH: Medical History Degenerative joint disease of spine Chronic anxiety Gastritis History of diverticulitis Hypothyroidism Spinal stenosis Chronic back pain History of gout Surgical History Thoracic outlet syndrome of both thoracic outlets (1981) Treated with surgery History of total left hip arthroplasty (2014) H/O esophagogastroduodenoscopy (01/08/20) Severe gastritis, hiatal hernia, Schatzki ring Hx of colonoscopy (01/08/20) Diverticulosis History of cholecystectomy History of tonsillectomy History of X 3 Family History Father Cancer Mother Diabetes Other Anesthesia complication CAD (coronary artery disease) Lung disease Denies family history of Bleeding disorder Stroke Social History Smoking and tobacco/nicotine status: never used tobacco/nicotine Alcohol intake: never Substance/Drug Use: never Physical Exam 2 Const: GENERAL APPEARANCE: cooperative, ill appearing and frail appearing HENMT: COMMON NORMALS: normocephalic, atraumatic and Normal external nose present HEAD & SCALP: normocephalic and atraumatic FACE & SINUS: normal facial exam and face symmetric NOSE: Normal external nose present Eye: COMMON NORMALS: Equal, round and reactive pupils present PUPIL: Yes Equal, round and reactive pupils present Neck/C-Spine: GENERAL: Yes trachea midline Chest: CHEST: Yes Symmetrical chest wall rise Resp: COMMON NORMALS: clear to auscultation bilaterally EFFORT & INSPECTION: Yes tachypneic AUSCULTATION: clear to auscultation bilaterally Cardio: COMMON NORMALS: regular rate and regular rhythm RATE: regular rate RHYTHM: regular rhythm GI: INSPECTION: Yes abdominal distension PALPATION: Yes Tenderness to palpation present (GI) (Diffuse) Extremity: COMMON NORMALS: capillary refill normal Neuro: RADHA COMA SCALE: document GCS findings Radha coma scale eye opening: Spontaneous [place] coma scale verbal response: Orientated Radha coma scale motor response: Obey commands Radha coma scale total score: 15 Procedures Rectal Disimpaction Time out performed rectal disimpaction: No Indication: fecal impaction Procedural Sedation: No Sedation/Analgesia: none Technique: manual disimpaction with gloved finger Result: significant stool output Patient Tolerated Procedure: well and no complications Complications: none Course 2 Vital Signs: Vital signs: Vital Signs Temperature 97.5 F L 08/28/23 17:32 Pulse Rate 64 08/28/23 17:32 Respiratory Rate 17 08/28/23 17:32 Blood Pressure 115/72 08/28/23 17:32 Pulse Oximetry 95 08/28/23 17:32 Oxygen Delivery Me thod Room Air 08/28/23 17:32 Oxygen Flow Rate 2 08/28/23 09:06 MDM - Abdominal Pain Medical Decision Making White blood cell count is 23.6. Hemoglobin is 17. Potassium is 2.4. Creatinine is 1.2. KUB shows a large amount of stool. Given her leukocytosis, belly CT was performed. It shows a large amount of stool in the distal colon and rectum. Manual disimpaction is performed revealing the evacuation of a large amount of stool. Patient feels improved. She is getting oral and IV potassium repletion. Repeat is pending. Her lactic acid was 4.2, with repeat pending. Her CRP is only [address] results leads me to believe that other findings are reactive. Reflux number Actiq acid went up to 4.4. Potassium came up to 3.1. With leukocytosis, increasing lactate, will elect to admit the patient for volume repletion, stabilization of potassium levels. Hospitalist is seeing the patient in the ER. Lab Data 08/28/23 01:48 08/28/23 09:24 Labs/Radiology: Radiology Impressions KUB X-Ray 08/28/23 01:34 IMPRESSION: No dilated bowel loops. Large amount of stool noted in the distal colon/rectum. Abdomen/Pelvis CT 08/28/23 02:42 IMPRESSION: Nondilated fluid-filled of small bowel. Fluid is noted in the proximal colon. Correlate with history of enterocolitis. Large amount of stool is noted in the distal colon and rectum distended measuring up to 7.7 cm. Chest X-Ray 08/28/23 06:14 IMPRESSION: Patchy bibasilar atelectasis or other infiltrates. Laboratory Results WBC 23.66 10^3/uL (3.29-11.43) H 08/28/23 01:48 RBC 5.55 10^6/uL (3.85-5.65) 08/28/23 01:48 Hgb 17.10 g/dL (11.27-16.99) H 08/28/23 01:48 Hct 49.5 % (36-47) H 08/28/23 01:48 MCV 89.2 fl (85-98) 08/28/23 01:48 MCH 30.8 pg (27-33) 08/28/23 01:48 MCHC 34.5 g/dL (30-55) 08/28/23 01:48 RDW 12.5 % (12.1-15.1) 08/28/23 01:48 Plt Count 399 10^3/cmm (157-399) 08/28/23 01:48 MPV 8.8 fL (7.4-10.4) 08/28/23 01:48 Neut % (Auto) 86.7 % 08/28/23 01:48 Lymph % (Auto) 4.9 % 08/28/23 01:48 [place] % (Auto) 7.4 % 08/28/23 01:48 Eos % (Auto) 0.1 % 08/28/23 01:48 Baso % (Auto) 0.3 % 08/28/23 01:48 Neut # (Auto) 20.53 10^3/uL (1.8-7.7) H 08/28/23 01:48 Lymph # (Auto) 1.2 10^3/uL (0.8-4.8) 08/28/23 01:48 [place] # (Auto) 1.8 10^3/uL (0.2-0.9) H 08/28/23 01:48 Eos # (Auto) 0.0 10^3/uL (0.0-0.8) 08/28/23 01:48 Baso # (Auto) 0.1 10^3/uL (0.0-0.1) 08/28/23 01:48 Nucleated RBC % (auto) 0 % 08/28/23 01:48 Nucleated RBCs # 0.0 /100WBC 08/28/23 01:48 Sodium 131 mmol/L (136-145) L 08/28/23 05:25 Potassium 3.1 mmol/L (3.5-5.1) L 08/28/23 05:25 Chloride 87 mmol/L (98-107) L 08/28/23 05:25 Carbon Dioxide 33 mmol/L (22-29) H 08/28/23 05:25 Anion Gap 14.1 (5-19) 08/28/23 05:25 BUN 67 mg/dL (8-23) H 08/28/23 05:25 Creatinine 1.1 mg/dL (0.5-0.9) H 08/28/23 05:25 GFR Calculation Not Reportable 08/28/23 05:25 Glucose 237 mg/dL (65-115) H 08/28/23 05:25 Calculated Osmolality 299 mOsm/kg (285-295) H 08/28/23 05:25 Lactic Acid 4.2 mmol/L (0.5-2.2) H* 08/28/23 02:22 Lactic Acid (Sepsis) 4.4 mmol/L (0.5-2.2) H* 08/28/23 05:25 Calcium 11.6 mg/dL (8.5-10.5) H 08/28/23 05:25 Total Bilirubin 0.4 mg/dL (0.15-1.2) 08/28/23 02:22 AST 36 U/L (0-32) H 08/28/23 02:22 ALT 39 U/L (0-33) H 08/28/23 02:22 Alkaline Phosphatase 68 U/L (35-105) 08/28/23 02:22 Troponin T Baseline 78 ng/L (0-10) H 08/28/23 05:25 C-Reactive Protein 7.0 mg/L (0.0-4.9) H 08/28/23 05:25 NT-Pro-B Natriuret Pep 1904 pg/mL (0-450) H 08/28/23 05:25 Total Protein 6.9 g/dL (6.6-8.7) 08/28/23 02:22 Albumin 4.0 g/dL (3.5-5.2) 08/28/23 02:22 Globulin 2.9 g/dL (1.3-4.6) 08/28/23 02:22 Triglycerides 229 mg/dL (0-150) H 08/28/23 05:25 Cholesterol 241 mg/dL (0-200) H 08/28/23 05:25 LDL Cholesterol, Calc 143 mg/dL (50-129) H 08/28/23 05:25 HDL Cholesterol 52 mg/dL (60-100) L 08/28/23 05:25 LDL/HDL Ratio 2.75 RATIO (0.00-3.22) 08/28/23 05:25 Cholesterol/HDL Ratio 4.63 mg/dL (0.0-4.40) H 08/28/23 05:25 Lipase 30 U/L (13-60) 08/28/23 02:22 Procalcitonin 0.13 ng/mL (0-0.5) 08/28/23 05:25 Urine Color Yellow (Yellow) 08/28/23 03:30 Urine Appearance Clear (CLEAR) 08/28/23 03:30 Urine pH 7 (5-7) 08/28/23 03:30 Ur Specific [place] 1.020 (1.005-1.030) 08/28/23 03:30 Urine Protein Neg (Negative) 08/28/23 03:30 Urine Glucose (UA) Norm (Normal) 08/28/23 03:30 Urine Ketones Negative (Negative) 08/28/23 03:30 Urine Blood Neg (Negative) 08/28/23 03:30 Urine Nitrate Positive (Negative) H 08/28/23 03:30 Urine Bilirubin Neg (Negative) 08/28/23 03:30 Urine Urobilinogen Norm mg/dL (Negative) 08/28/23 03:30 Ur Leukocyte Esterase Trace (Negative) H 08/28/23 03:30 Urine RBC 0-4 /hpf (0-2) H 08/28/23 03:30 Urine WBC 0-4 /hpf (0-5) H 08/28/23 03:30 Ur Squamous Epith Cells 0-4 /hpf (0-5) H 08/28/23 03:30 Amorphous Sediment Not Reportable 08/28/23 03:30 Urine Bacteria Trace /hpf (NONE) 08/28/23 03:30 All radiology interpretation(s) finalized by discharge Discharge Plan Discharge Patient Disposition: Admitted As Inpatient Admit Provider: Andrew Cabezas Clinical Impression: Constipation, Acute hypokalemia, Fecal impaction in rectum, Metabolic acidosis Condition: Fair Coding Level of Care Code ED Physiotherapy Practice Manager for Rachael Palacio
--- NOTE | 2023-08-28 02:42 | CTR_ITS ---
PROCEDURE INFORMATION: Exam: CT Abdomen And Pelvis With Contrast Exam date and time: 08/28/2023 2:57 AM Age: 87 years old Clinical indication: Pain and abnormal findings; Abnormal lab test; Elevated wbc; Abdominal pain; Generalized; Prior surgery; Surgery date: 6+ months; Surgery type: Gb. Hysterectomy. Ton. Patient HX: Diffuse abd pain with constipation. Wbc 23k. Lactate 4.2; Additional info: Abd pain, leukocytosis TECHNIQUE: Imaging protocol: Computed tomography of the abdomen and pelvis with contrast. Radiation optimization: All CT scans at this facility use at least one of these dose optimization techniques: automated exposure control; mA and/or kV adjustment per patient size (includes targeted exams where dose is matched to clinical indication); or iterative reconstruction. Contrast material: OMNI 350; Contrast volume: 80 ml; Contrast route: INTRAVENOUS (IV); COMPARISON: CT abdomen pelvis wo con [id number] 12/09/2022 12:33 PM RADIATION DOSE METRICS: Total DLP (mGy-cm): 1490.19 FINDINGS: Lungs: Patchy bibasilar atelectasis. Diaphragm: Small hiatal hernia. Liver: Fatty liver. Gallbladder and bile ducts: Status post cholecystectomy with biliary ductal dilation. Pancreas: No ductal dilation. Spleen: No splenomegaly. Adrenal glands: Normal. No mass. Kidneys and ureters: No hydronephrosis. Stomach and bowel: Nondilated fluid-filled of small bowel. Fluid is noted in the proximal colon. Correlate with history of enterocolitis. Large amount of stool is noted in the distal colon and rectum distended measuring up to 7.7 cm. Colonic diverticulosis without findings diverticulitis. Appendix: The appendix is not identified. There are no focal inflammatory changes the right lower quadrant. Intraperitoneal space: No free air. Vasculature: Atherosclerotic changes of the aorta. No portal venous gas. Lymph nodes: No enlarged lymph nodes. Urinary bladder: Conner catheter identified in a collapsed urinary bladder. Reproductive: Status post hysterectomy. Bones/joints: Degenerative changes of the lumbar spine. Left hip prosthesis. Soft tissues: Unremarkable. CT/CT abdomen pelvis w con* [id number] IMPRESSION: Nondilated fluid-filled of small bowel. Fluid is noted in the proximal colon. Correlate with history of enterocolitis. Large amount of stool is noted in the distal colon and rectum distended measuring up to 7.7 cm.
[2023-08-28 02:47] LABS: Alanine Aminotransferase 39 U/L (0-33); Alkaline Phosphatase 68 U/L (35-105); Anion Gap 14.4 (5-19); Aspartate Amino Transferase 36 U/L (0-32); Blood Urea Nitrogen 75 mg/dL (8-23); C Reactive Protein 6.1 mg/L (0.0-4.9); Calcium 12.7 mg/dL (8.5-10.5); Carbon Dioxide 39 mmol/L (22-29); Chloride 82 mmol/L (98-107); Creatinine Clr Calc Pharmacy 29.3007; Globulin 2.9 g/dL (1.3-4.6); Glucose 247 mg/dL (65-115); Lipase 30 U/L (13-60); Osmolality Calculated 307 mOsm/kg (285-295); Sodium 133 mmol/L (136-145); Total Bilirubin 0.4 mg/dL (0.15-1.2); Total Protein 6.9 g/dL (6.6-8.7)
[2023-08-28 02:48] LABS: Potassium 2.4 mmol/L (3.5-5.1)
[2023-08-28 02:49] LABS: Lactic Sepsis W/Reflex 4.2 mmol/L (0.5-2.2)
[2023-08-28] MEDS: iohexol 350 mg/mL 500 mL Btl (per mL) IV (03:01)
[2023-08-28] MEDS: potassium chloride premix 100 ML 25 MEQ IV (03:26)
[2023-08-28] MEDS: potassium chloride oral liq 20 mEq/15 mL UDC 40 MEQ PO (03:27)
[2023-08-28 03:44] LABS: Add Urine Microscopic? YES; Bilirubin Urine Neg (Negative); Blood Urine Neg (Negative); Glucose Urine UA Norm (Normal); Ketones Urine Negative (Negative); Leukocyte Esterase Urine Trace (Negative); Nitrate Urine Positive (Negative); Protein Urine Neg (Negative); Urine Appearance Clear (CLEAR); Urine Color Yellow (Yellow); Urobilinogen Urine Norm (Negative); pH Urine 7 (5-7)
[2023-08-28 03:45] LABS: Bacteria Urine TRACE /hpf; RBC Urine 0-4 /hpf (0-2); Squamous Epithelial Cell Urine 0-4 /hpf (0-5); WBC Urine 0-4 /hpf (0-5)
[2023-08-28 04:15] LABS: Reflex Lactate Order REFLEX LACTIC ORDERD
[2023-08-28 05:47] LABS: Blood Urea Nitrogen 67 mg/dL (8-23); Calcium 11.6 mg/dL (8.5-10.5); Carbon Dioxide 33 mmol/L (22-29); Chloride 87 mmol/L (98-107); Glucose 237 mg/dL (65-115); Osmolality Calculated 299 mOsm/kg (285-295); Sodium 131 mmol/L (136-145)
[2023-08-28 05:49] LABS: Anion Gap 14.1 (5-19); Potassium 3.1 mmol/L (3.5-5.1)
[2023-08-28 05:50] LABS: Lactic Acid level (Lactate) 4.4 mmol/L (0.5-2.2)
--- NOTE | 2023-08-28 06:11 | ECG_ITS ---
[facility] Test Date: 2023-08-28 Pat Name: Kassie Degroot Department: Room: 256 Gender: Female Practicing Md Anesthesiologist: : 1935 Requested By: Andrew Cabezas Order Number: [id number] Florentin MD: Elmer Rueda M.D. Measurements Intervals [place] Rate: 71 P: -74 HI: 168 QRS: -75 QRSD: 173 T: 35 QT: 507 QTc: 554 Interpretive Statements ECTOPIC ATRIAL RHYTHM RIGHT BUNDLE BRANCH BLOCK [120+ ms QRS DURATION, UPRIGHT V1, 40+ ms S IN I/aVL/V4/V5/V6] LEFT ANTERIOR FASCICULAR BLOCK [QRS AXIS <= -45, QR IN I, RS IN II] Compared to ECG 08/28/2023 09:13:13 No significant changes Electronically Signed On 08-29-2023 8:38:31 DENTAL MOLD MAKER by Elmer Rueda M.D. [id number]
--- NOTE | 2023-08-28 06:14 | XRR_ITS ---
PROCEDURE INFORMATION: Exam: XR Chest Exam date and time: 08/28/2023 6:37 AM Age: 87 years old Clinical indication: Other: Hypoxia; Prior surgery; Surgery date: 6+ months; Surgery type: Gb TECHNIQUE: Imaging protocol: Radiologic exam of the chest. Views: 1 view. COMPARISON: CR XR chest 1V portable [id number] 01/22/2022 6:09 PM FINDINGS: Lungs: Patchy bibasilar atelectasis or other infiltrates. Pleural spaces: Unremarkable. No pleural effusion. No pneumothorax. Heart/Mediastinum: Cardiomegaly. Bones/joints: No acute fracture. XR/XR chest 1V [id number] IMPRESSION: Patchy bibasilar atelectasis or other infiltrates.
--- NOTE | 2023-08-28 06:16 | P.HP_ITS ---
Providers/Chief Complaint 2 Primary Care Provider: Sammy Blancas MD Chief Complaint: ABD PAIN History of Present Illness Kassie Degroot is a 87 year old female with a past medical history of GI bleeds, diverticulosis, hypothyroidism, chronic pain on hydrocodone, history of EGDs history of right lung transplant, history of rectal impaction resulting in GI bleed requiring colonoscopy, who presents [facility] due to fatigue, malaise, confusion. Currently patient alert to person, to place, not to time, she can follow commands, but she does not recognize who I am, currently she denies any abdominal pain, only complains of low back pain, no fevers, no chills, no cough, no dysuria, no flank pain her granddaughter at bedside tells me that for the last 48 hours or so she has been feeling weak fatigued, increasingly confused, has been constipated Review of Systems 2 Card: Denies: chest pain Resp: Denies: dyspnea GI: Reports: abdominal pain Medications/Allergies Home Medications Medication Instructions Recorded Confirmed Last Taken Type hydrocodone 10 mg-acetaminophen 1 tab PO Q4H PRN Pain 11/08/19 02/10/22 01/27/22 History 325 mg tablet escitalopram oxalate 10 mg tablet 10 mg PO DAILY 01/22/22 02/10/22 01/27/22 History furosemide 40 mg tablet (Lasix) 40 mg PO BID 30 days #60 tabs 01/23/22 02/10/22 01/27/22 Rx amoxicillin 875 mg-potassium 1 tab PO BID 02/10/22 02/10/22 Unknown History clavulanate 125 mg tablet famotidine 40 mg tablet 40 mg PO DAILY 02/10/22 02/10/22 Unknown History levothyroxine 112 mcg tablet 112 mcg PO DAILY 02/10/22 02/10/22 Unknown History (Synthroid) Allergies Allergy/AdvReac Type Severity Reaction Status Date / Time codeine Allergy Unknown cant Verified 02/10/22 10:52 remember Sulfa (Sulfonamide Allergy Unknown cant Verified 02/10/22 10:52 Antibiotics) remember PFSH Acute 2 PFSH: Medical History Degenerative joint disease of spine Chronic anxiety Gastritis History of diverticulitis Hypothyroidism Spinal stenosis Chronic back pain History of gout Surgical History Thoracic outlet syndrome of both thoracic outlets (1981) Treated with surgery History of total left hip arthroplasty (2014) H/O esophagogastroduodenoscopy (01/08/20) Severe gastritis, hiatal hernia, Schatzki ring Hx of colonoscopy (01/08/20) Diverticulosis History of cholecystectomy History of tonsillectomy History of X 3 Family History Father Cancer Mother Diabetes Other Anesthesia complication CAD (coronary artery disease) Lung disease Denies family history of Bleeding disorder Stroke Social History Smoking and tobacco/nicotine status: never used tobacco/nicotine Alcohol intake: never Substance/Drug Use: never Vitals/I&O/Wt Last Vital Signs Temp 97.5 F L 08/28/23 01:23 Pulse 74 08/28/23 04:25 Resp 16 08/28/23 04:25 BP 155/85 08/28/23 04:25 Pulse Ox 93 08/28/23 04:25 O2 Del Method Nasal Cannula 08/28/23 04:25 O2 Flow Rate 3 08/28/23 04:25 08/27/23 08/27/23 08/28/23 14:59 22:59 06:59 Intake Total 1000 / 1000 Balance 1000 / 1000 Weight last 48 hrs Weight 68.039 kg Physical Exam 2 Const: COMMON NORMALS: no acute distress ORIENTATION/CONSCIOUSNESS: Yes awake, Yes oriented to person and Yes oriented to place; not oriented to time HENMT: COMMON NORMALS: normocephalic HEAD & SCALP: normocephalic Eye: COMMON NORMALS: Equal, round and reactive pupils present and EOMs intact bilaterally Resp: COMMON NORMALS: normal respiratory effort, No retractions, No use of accessory muscles and clear to auscultation bilaterally AUSCULTATION: clear to auscultation bilaterally Cardio: COMMON NORMALS: regular rate, regular rhythm, S1 normal heart sound present and S2 normal heart sound present RATE: regular rate RHYTHM: r egular rhythm HEART SOUNDS: S1 normal heart sound present and S2 normal heart sound present GI: COMMON NORMALS: Normal to inspection, nondistended, normoactive bowel sounds present, Soft to palpation and non-tender Extremity: COMMON NORMALS: no calf tenderness and no pedal edema Neuro: COMMON NORMALS: CN's II-XII intact bilaterally and moves all extremities Urinary Catheter Management: Conner: Cath Placed During This Visit: yes Urinary Catheter Date of Insertion: 08/28/23 Urinary Catheter Time of Insertion: 02:48 Data 08/28/23 01:48 08/28/23 05:25 A&P Assessment and plan (1) Acute encephalopathy: (2) Fecal impaction in rectum: (3) Acute hypokalemia: (4) Iron deficiency anemia secondary to blood loss (chronic): (5) UTI (urinary tract infection): (6) Elevated lactic acid level: (7) Acute kidney injury: Plan Dehydration, IV fluids Hypokalemia has replaced in the IV recheck at 9 AM DAIJA, IV fluids likely secondary hydration Altered mental status likely sec to UTI, continue Rocephin Elevated lactic acid likely secondary to dehydration, follow lactic acids, IV fluids, Fecal impaction, CT scan showing Large amount of stool is noted in the distal colon and rectum distended measuring up to 7.7 cm. -Status post disimpaction in the ER -Continue home lactulose as needed ? MiraLAX scheduled, Colace Hypoxia, on 3 L, BNP, chest x-ray, ABG CODE STATUS full code, ? SCDs for DVT prophylaxis, Lovenox relatively contraindicated given history of GI bleed Attestations 2 Medical Necessity Statement*: Patient requires hospitalization for fecal impaction, constipation, DAIJA, hyperkalemia, dehydration, elevated lactic acid, hypoxia, outpatient with observation, UTI, altered mental status Diagnoses Acute encephalopathy G93.40 Fecal impaction in rectum K56.41 Acute hypokalemia E87.6 Iron deficiency anemia secondary to blood loss (chronic) D50.0 UTI (urinary tract infection) N39.0 Elevated lactic acid level R79.89 Acute kidney injury N17.9
[2023-08-28] MEDS: sodium chloride 0.9% 1,000 ML 100 ML IV ×2 (06:30→15:56)
[2023-08-28] MEDS: pantoprazole 40 mg SDV IVP (06:31)
[2023-08-28] MEDS: cefTRIAXone 1,000 MG in sodium chloride 0.9% (plus) 50 ML 100 MG IV (06:34)
[2023-08-28 06:54] LABS: Chol HDL Ratio 4.63 mg/dL (0.0-4.40); Cholesterol 241 mg/dL (0-200); HDL Cholesterol 52 mg/dL (60-100); LDL Cholesterol Calculated 143 mg/dL (50-129); LDL HDL Ratio 2.75 RATIO (0.00-3.22); NT Pro B Type Natriuretic Pept 1904 pg/mL (0-450); Procalcitonin 0.13 ng/mL (0-0.5); Triglycerides 229 mg/dL (0-150)
[2023-08-28 07:12] LABS: Troponin(5th) Baseline 78 ng/L (0-10)
[2023-08-28 07:28] LABS: ABG PCO2 50.5 mmHg (35-45); Arterial Blood Gas Hematocrit 48.2 % (37-47); Base Excess ABG 13.3 mmol/L (-2.0-2.0); Blood Gas Operator Identificat AMH; Blood Gas Sample Site Brachial, left; Blood Gas Sample Type Arterial; Oxygen Device NC; PO2 ABG 72.7 mmHg (80.0-100.0); PO2 FiO2 Ratio Arterial Blood 0
[2023-08-28] MEDS: polyethylene glycol 3350 Pkt 17 gm PO (08:54)
[2023-08-28] MEDS: docusate sodium 100 mg Capsule PO ×2 (08:54→17:30)
[2023-08-28 09:11] LABS: Troponin 5 2HR 72.82 ng/L (0-10)
[2023-08-28 09:12] LABS: Troponin 5 2HR Delta -5.18 ABS# (0-10)
--- NOTE | 2023-08-28 09:13 | ECG_ITS ---
[facility] Test Date: 2023-08-28 Pat Name: Kassie Degroot Department: Room: 256 Gender: Female Room Clerk: : 1935 Requested By: Andrew Cabezas Order Number: [id number] Florentin MD: Elmer Rueda M.D. Measurements Intervals [place] Rate: 72 P: -76 DC: 162 QRS: -80 QRSD: 168 T: 40 QT: 455 QTc: 501 Interpretive Statements ECTOPIC ATRIAL RHYTHM RIGHT BUNDLE BRANCH BLOCK [120+ ms QRS DURATION, UPRIGHT V1, 40+ ms S IN I/aVL/V4/V5/V6] LEFT ANTERIOR FASCICULAR BLOCK [QRS AXIS <= -45, QR IN I, RS IN II] Compared to ECG 01/22/2022 22:33:30 Ectopic atrial rhythm now present Right bundle-branch block now present Sinus rhythm no longer present ST (T wave) deviation no longer present Electronically Signed On 08-28-2023 10:58:50 TRUCK BRACER by Elmer Rueda M.D. [id number]
[2023-08-28 09:58] LABS: Lactic Sepsis W/Reflex 3.9 mmol/L (0.5-2.2)
[2023-08-28 09:59] LABS: Anion Gap 10.9 (5-19); Blood Urea Nitrogen 59 mg/dL (8-23); Calcium 10.8 mg/dL (8.5-10.5); Carbon Dioxide 37 mmol/L (22-29); Chloride 90 mmol/L (98-107); Glucose 214 mg/dL (65-115); Osmolality Calculated 303 mOsm/kg (285-295); Sodium 135 mmol/L (136-145)
[2023-08-28 10:00] LABS: Potassium 2.9 mmol/L (3.5-5.1)
[2023-08-28 11:21] LABS: Reflex Lactate Order REFLEX LACTIC ORDERD
[2023-08-28] MEDS: lactulose oral liq 20 gm/30 mL UDC 30 GM PO (11:38)
[2023-08-28] MEDS: levothyroxine 112 mcg Tablet PO (11:38)
[2023-08-28] MEDS: piperacillin-tazobactam 3.375 GM in sodium chloride 0.9% (plus) 50 ML IV ×2 (11:39→19:53)
--- NOTE | 2023-08-28 12:09 | W.PM.EVENTAC ---
Event Note Event Note: Daughter has tried enema at home She has significant rectal dilation I will give her mag citrate and lactulose and GoLytely today I did discuss goals of care patient is DNR/DNI Continue IV fluids I will keep her on clear liquids Add Zosyn
[2023-08-28 12:10] LABS: Troponin 5 6HR 81.83 ng/L (0-10); Troponin 5 6HR Delta 3.83 ng/L (0-12)
[2023-08-28] MEDS: peg /e-lyte soln 4,000 mL Btl 1500 ML PO (15:44)
[2023-08-28 22:07] LABS: Glucose Point of Care 225 mg/dL (70-110)
[2023-08-29] VITALS (10 sets, daily range): BP systolic 119–133; BP diastolic 62–71; PULSE 69–79; RESP 16–19; TEMP 36.3–37.7; O2SAT 91–95
[2023-08-29] MEDS: piperacillin-tazobactam 3.375 GM in sodium chloride 0.9% (plus) 50 ML IV ×3 (02:12→23:03)
[2023-08-29] MEDS: sodium chloride 0.9% 1,000 ML 100 ML IV ×3 (02:12→21:55)
[2023-08-29] MEDS: pantoprazole 40 mg SDV IVP (05:38)
[2023-08-29] MEDS: levothyroxine 112 mcg Tablet PO (05:43)
--- NOTE | 2023-08-29 09:30 | PC.CHAP ---
Pastoral Care Encounter/Spiritual Assessment Type of Contact [] Declined die inspector visit [] Patient/Family/Request visit [] Outpatient visit [] Follow-up visit [] Physician referral [] Code/Alert [x] Routine visit [] Staff referral [] Actively dying [] Patient sleeping [x] Family support [] [] Out of room [] Palliative care [] [] Receiving care in room [] Pre-surgical visit [] Trauma [] Long length of stay [] ICU visit [] Other: Relational/Emotional Strength [x] Patient feels connected with others/family/visitors/staff [] Distress [] Loneliness/isolation [] Abandonment Spirituality of Patient [x] Person of Jasmyn [] Attends Hinduism of their Jasmyn [x] Believes in Prayer [] Reads Bible or Holiness materials [] There are Spiritual issues to be addressed Chief Executive Or Managing Director Interventions [x] Prayer [x] Active listening [] Non-anxious presence [x] Spiritual/emotional support [] Crisis/trauma care [] Spiritual counseling [] Bereavement support [] Provided bereavement packet [] Provided Bible/devotional materials [] Provided toy/stuffed animal, coloring book to patient or family member [] Provided Communion [] Anointing/[place] [] Salvation [x] Completed spiritual assessment [] Other: Impact on Illness or Injury [] Angry [] Fearful [] Anxious [] Often cries [] Exhaustion [] Unable to work [] Unable to attend oriental orthodox [] Unable to walk/stand [] Unable to read [] Unable to drive [] Unable to eat/drink [] Unable to sleep [] Unable to be with family [] Patient intubated [] Other: Summary Time spent with patient 5 min
[2023-08-29] MEDS: docusate sodium 100 mg Capsule PO ×2 (10:29→17:51)
[2023-08-29] MEDS: lidocaine 1% 5 ML in potassium chloride premix 100 ML 26.25 ML IV (10:29)
--- NOTE | 2023-08-29 11:59 | XR_ITS ---
WS: [id number] XR pelvis 1-2V* [id number] REASON FOR EXAM: rectal distention FINDINGS: The bony pelvis is unchanged compared to 09/09/2016. There has been total left hip arthroplasty. 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 There is moderately dense but well-defined sclero sis of the margins of the sacroiliac joints with vacuum phenomenon. Multiple mildly distended loops of colon and small bowel. No pelvic mass identified.. IMPRESSION: Nonspecific bowel distention with no other significant finding.
--- NOTE | 2023-08-29 12:30 | P.PN_ITS ---
Subjective 2 Subjective: Will repeat pelvic x-ray Patient had a large BM yesterday as per nursing staff Patient is oriented to herself Vitals/I&O/Wt Last Vital Signs Temp 97.3 F L 08/29/23 12:18 Pulse 73 08/29/23 12:18 Resp 18 08/29/23 12:18 BP 133/65 08/29/23 12:18 Pulse Ox 93 08/29/23 12:18 O2 Del Method Nasal Cannula 08/29/23 12:18 O2 Flow Rate 2 08/29/23 08:23 08/28/23 08/29/23 08/29/23 22:59 06:59 14:59 Intake Total 1306.666 / 5740.551 4418 / 2406.666 1480 / 1480 Output Total 1950 / 1950 250 / 2200 Balance -643.334 / -643.334 850 / 325.315 4035 / 1480 Weight last 48 hrs Weight 66.848 kg Weight 68.039 kg Physical Exam 2 Narrative: Awake and alert however oriented to herself S1, S2 Currently on 2 L nasal cannula Abdomen soft Bowel sounds are sluggish No abdominal tenderness Urinary Catheter Management: Conner: Cath Placed During This Visit: yes Reason for Continuing Indwelling Catheter: Required Immobilization for Trauma or Surgery or Anesthesia Urinary Catheter Date of Insertion: 08/28/23 Urinary Catheter Time of Insertion: 02:48 Data 08/28/23 01:48 08/28/23 09:24 A&P Assessment and plan (1) Constipation: (2) Fecal impaction in rectum: (3) Acute kidney injury: (4) Acute hypokalemia: (5) UTI (urinary tract infection): (6) Acute on chronic anemia: (7) Pneumonia: Plan Continue antibiotics Plan to discharge by tomorrow Had 1 bowel movement yesterday No abdominal pain Continue to biotics for pneumonia she has UTI as well Constipation improving Continue IV fluids for now DNR/DNI Attestations 2 Medical Necessity Statement*: Discharge tomorrow Diagnoses Constipation K59.00 Fecal impaction in rectum K56.41 Acute kidney injury N17.9 Acute hypokalemia E87.6 UTI (urinary tract infection) N39.0 Acute on chronic anemia D64.9 Pneumonia J18.9
[2023-08-29] MEDS: acetaminophen 325 mg Tablet 650 MG PO (16:32)
[2023-08-30] VITALS (9 sets, daily range): BP systolic 104–151; BP diastolic 48–77; PULSE 63–87; RESP 15–18; TEMP 36.7–37.2; O2SAT 90–100
[2023-08-30 05:13] LABS: Basophils # 0.1 10^3/uL (0.0-0.1); Basophils % 0.6 %; Eosinophils # 0.1 10^3/uL (0.0-0.8); Eosinophils % 1.3 %; Hematocrit 45.2 % (36-47); Lymphocytes # 2.2 10^3/uL (0.8-4.8); Lymphocytes % 19.8 %; Mean Corpuscular HGB Conc 29.9 g/dL (30-55); Mean Corpuscular Hemoglobin 30.6 pg (27-33); Mean Corpuscular Volume 102.5 fl (85-98); Monocytes # 1.2 10^3/uL (0.2-0.9); Monocytes % 10.6 %; Neutrophils # 7.29 10^3/uL (1.8-7.7); Neutrophils % 67.2 %; Nucleated Red Blood Cells % 0 %; Platelet Count 268 10^3/cmm (157-399); Red Blood Count 4.41 10^6/uL (3.85-5.65); White Blood Count 10.84 10^3/uL (3.29-11.43)
[2023-08-30] MEDS: levothyroxine 112 mcg Tablet PO (05:36)
[2023-08-30 05:38] LABS: Anion Gap 11.8 (5-19); Blood Urea Nitrogen 15 mg/dL (8-23); Calcium 8.4 mg/dL (8.5-10.5); Carbon Dioxide 28 mmol/L (22-29); Chloride 101 mmol/L (98-107); Glucose 105 mg/dL (65-115); Osmolality Calculated 287 mOsm/kg (285-295); Sodium 138 mmol/L (136-145)
[2023-08-30] MEDS: pantoprazole 40 mg SDV IVP (05:38)
[2023-08-30] MEDS: acetaminophen 325 mg Tablet 650 MG PO ×3 (05:44→22:31)
[2023-08-30 06:03] LABS: Potassium 2.8 mmol/L (3.5-5.1)
[2023-08-30] MEDS: lidocaine 1% 5 ML in potassium chloride premix 100 ML 26.25 ML IV (06:27)
[2023-08-30] MEDS: potassium chloride ER 20 mEq Tablet 40 MEQ PO (10:01)
[2023-08-30] MEDS: docusate sodium 100 mg Capsule PO ×2 (10:01→17:53)
[2023-08-30] MEDS: piperacillin-tazobactam 3.375 GM in sodium chloride 0.9% (plus) 50 ML IV ×3 (10:02→23:47)
--- NOTE | 2023-08-30 11:22 | PC.NURSE ---
Dr. Carrillo gave verbal orders to discontinue fluids on patient due to edema. Order has been put in and completed.
--- NOTE | 2023-08-30 12:30 | P.PN_ITS ---
Subjective 2 Subjective: Patient is having frequent bowel movement, responded very well to GoLytely for constipation She is awake and alert endorsing weakness She has not gotten out of bed Requested PT Granddaughter is concerned if she will be able to go home versus she will need short-term rehab Vitals/I&O/Wt Last Vital Signs Temp 98.2 F 08/30/23 12:00 Pulse 80 08/30/23 12:00 Resp 15 08/30/23 12:00 BP 104/48 08/30/23 12:00 Pulse Ox 92 08/30/23 12:00 O2 Del Method Nasal Cannula 08/30/23 12:00 O2 Flow Rate 2 08/30/23 08:16 08/29/23 08/30/23 08/30/23 22:59 06:59 14:59 Intake Total 1258.333 / 2843.333 1396.667 / 4240.000 240 / 240 Output Total 650 / 650 300 / 950 Balance 608.333 / 2193.333 1096.667 / 3290.000 240 / 240 Weight last 48 hrs Weight 71.753 kg Weight 66.848 kg Physical Exam 2 Narrative: Patient looks dehydrated Awake and alert Confusion improved Pleasant cooperative Nonfocal neuroexam She is getting potassium at the bedside Complaining of swelling of her right hand which is related to IV line Abdomen soft Bowel sound present S1, S2 Currently on room air Granddaughter at the bedside Urinary Catheter Management: Conner: Cath Placed During This Visit: yes Reason for Continuing Indwelling Catheter: Acute Urinary Retention or Obstruction Urinary Catheter Date of Insertion: 08/28/23 Urinary Catheter Time of Insertion: 02:48 Data 08/30/23 04:38 08/30/23 04:38 A&P Assessment and plan (1) Constipation: (2) Fecal impaction in rectum: (3) Acute hypokalemia: (4) Acute kidney injury: (5) UTI (urinary tract infection): (6) Acute encephalopathy: (7) Pneumonia: Plan Metabolic encephalopathy related to UTI pneumonia and constipation Significant improvement of leukocytosis Constipation resolved with use of GoLytely Afebrile No leukocytosis I should be able to discharge Kassie on p.o. antibiotics at the time she is ready to be released from the hospital Will request PT patient endorsing extreme fatigue and lethargy which she is attributing to poor p.o. intake Advance diet to GI soft today Potassium replenished with IV K rider Check mag level Signs of constipation: Improved No abdominal pain Patient is DNR/DNI She also have opioid-induced constipation component she uses hydrocodone at home for her back pain Plan to discharge later today if she is ready to go home with home health versus short-term rehab Attestations 2 Medical Necessity Statement*: Continue medical management Diagnoses Constipation K59.00 Fecal impaction in rectum K56.41 Acute hypokalemia E87.6 Acute kidney injury N17.9 UTI (urinary tract infection) N39.0 Acute encephalopathy G93.40 Pneumonia J18.9
[2023-08-31 00:51] VITALS: BP 136/76; PULSE 84; RESP 18; TEMP 37; O2SAT 90
[2023-08-31] MEDS: acetaminophen 325 mg Tablet 650 MG PO (03:11)
[2023-08-31] MEDS: HYDROcodone-acetaminophen 5-325 mg Tablet 1 TAB PO (03:52)
[2023-08-31 05:16] LABS: Basophils # 0.1 10^3/uL (0.0-0.1); Basophils % 0.6 %; Eosinophils # 0.1 10^3/uL (0.0-0.8); Eosinophils % 1.4 %; Hematocrit 41.4 % (36-47); Lymphocytes # 1.7 10^3/uL (0.8-4.8); Lymphocytes % 16.7 %; Mean Corpuscular HGB Conc 32.1 g/dL (30-55); Mean Corpuscular Hemoglobin 30.9 pg (27-33); Mean Corpuscular Volume 96.1 fl (85-98); Mean Platelet Volume 9.1 fL (7.4-10.4); Monocytes # 0.9 10^3/uL (0.2-0.9); Monocytes % 8.4 %; Neutrophils # 7.48 10^3/uL (1.8-7.7); Neutrophils % 72.4 %; Nucleated Red Blood Cells % 0 %; Platelet Count 268 10^3/cmm (157-399); Red Blood Count 4.31 10^6/uL (3.85-5.65); Red Cell Distribution Width 12.9 % (12.1-15.1); White Blood Count 10.33 10^3/uL (3.29-11.43)
[2023-08-31] MEDS: levothyroxine 112 mcg Tablet PO (05:22)
[2023-08-31 05:29] VITALS: BP 128/75; PULSE 80; RESP 17; TEMP 37.2; O2SAT 90
[2023-08-31] MEDS: pantoprazole 40 mg SDV IVP (05:33)
[2023-08-31 05:37] VITALS: PULSE 76
[2023-08-31 05:41] LABS: Anion Gap 9.2 (5-19); Blood Urea Nitrogen 9 mg/dL (8-23); Calcium 7.9 mg/dL (8.5-10.5); Carbon Dioxide 31 mmol/L (22-29); Chloride 98 mmol/L (98-107); Glucose 123 mg/dL (65-115); Osmolality Calculated 280 mOsm/kg (285-295); Potassium 3.2 mmol/L (3.5-5.1); Sodium 135 mmol/L (136-145)
[2023-08-31 08:00] VITALS: BP 135/77; PULSE 88; RESP 16; TEMP 36.8; O2SAT 91
[2023-08-31] MEDS: docusate sodium 100 mg Capsule PO (08:30)
[2023-08-31] MEDS: piperacillin-tazobactam 3.375 GM in sodium chloride 0.9% (plus) 50 ML IV (08:30)
--- NOTE | 2023-08-31 10:39 | P.DS_ITS ---
Discharge Providers Date of Admission: 08/28/23 06:24 Date of Discharge: August 31, 2023 Attending Provider at Admission: Andrew Cabezas MD Attending Provider at Discharge: Addison Ambrose MD Primary Care Provider: Sammy Blancas MD Diagnoses at Discharge Discharge Diagnosis (1) Constipation: Status: Acute (2) Fecal impaction in rectum: Status: Acute (3) Acute hypokalemia: Status: Acute (4) Acute kidney injury: Status: Acute (5) UTI (urinary tract infection): Status: Acute (6) Acute encephalopathy: Status: Acute (7) Pneumonia: Status: Acute Reason for Visit Reason for Visit: ABD PAIN Hospital Course Hospital Course 87yo F [address] to [facility] for encephalopathy 2/2 UTI, PNA and constipation. during hospitalization pt responded well to IV Abx. Leukocytosis has resolved. near end of hospitalization pt has significant issues with constipation. responded well to mg citrate and GoLytely. at time of discharge encephalopathy had responded. will send home on PO Abx for the pneumonia. We initially attempted SNF or home health; however, after further evaluation she no longer requires this. fatigue and lethergy has improved with increased PO intake. Pt has chronic intermittent issue with swallowing for which she needs to follow up with primary care provider Physical Exam Narrative: Patient looks dehydrated Awake and alert Confusion rsolved Pleasant cooperative Abdomen soft Bowel sound present S1, S2 Currently on room air Granddaughter at the bedside Urinary Catheter Management: Conner: Cath Placed During This Visit: yes Reason for Continuing Indwelling Catheter: Acute Urinary Retention or Obstruction Urinary Catheter Date of Insertion: 08/28/23 Urinary Catheter Time of Insertion: 02:48 Discharge Data Studies Completed and Pending Completed Studies During Hospitalization Category Date Time Status CT abdomen pelvis w con* [id number] Urgent Cat Scan 08/28/23 02:42 Completed XR KUB portable [id number] Stat Exams 08/28/23 01:34 Completed XR chest 1V [id number] Stat Exams 08/28/23 06:14 Completed XR pelvis 1-2V* [id number] Routine Exams 08/29/23 11:59 Completed Radiology Impressions KUB X-Ray 08/28/23 01:34 IMPRESSION: No dilated bowel loops. Large amount of stool noted in the distal colon/rectum. Abdomen/Pelvis CT 08/28/23 02:42 IMPRESSION: Nondilated fluid-filled of small bowel. Fluid is noted in the proximal colon. Correlate with history of enterocolitis. Large amount of stool is noted in the distal colon and rectum distended measuring up to 7.7 cm. Chest X-Ray 08/28/23 06:14 IMPRESSION: Patchy bibasilar atelectasis or other infiltrates. Laboratory Results WBC 10.33 10^3/uL (3.29-11.43) 08/31/23 04:32 RBC 4.31 10^6/uL (3.85-5.65) 08/31/23 04:32 Hgb 13.30 g/dL (11.27-16.99) 08/31/23 04:32 Hct 41.4 % (36-47) 08/31/23 04:32 MCV 96.1 fl (85-98) D 08/31/23 04:32 MCH 30.9 pg (27-33) 08/31/23 04:32 MCHC 32.1 g/dL (30-55) D 08/31/23 04:32 RDW 12.9 % (12.1-15.1) 08/31/23 04:32 Plt Count 268 10^3/cmm (157-399) 08/31/23 04:32 MPV 9.1 fL (7.4-10.4) 08/31/23 04:32 Neut % (Auto) 72.4 % 08/31/23 04:32 Lymph % (Auto) 16.7 % 08/31/23 04:32 [place] % (Auto) 8.4 % 08/31/23 04:32 Eos % (Auto) 1.4 % 08/31/23 04:32 Baso % (Auto) 0.6 % 08/31/23 04:32 Neut # (Auto) 7.48 10^3/uL (1.8-7.7) 08/31/23 04:32 Lymph # (Auto) 1.7 10^3/uL (0.8-4.8) 08/31/23 04:32 [place] # (Auto) 0.9 10^3/uL (0.2-0.9) 08/31/23 04:32 Eos # (Auto) 0.1 10^3/uL (0.0-0.8) 08/31/23 04:32 Baso # (Auto) 0.1 10^3/uL (0.0-0.1) 08/31/23 04:32 Nucleated RBC % (auto) 0 % 08/31/23 04:32 Nucleated RBCs # 0.0 /100WBC 08/31/23 04:32 Specimen Type Arterial 08/28/23 07:17 Sample Site Brachial, left 08/28/23 07:17 ABG pH 7.50 (7.35-7.45) H 08/28/23 07:17 ABG pCO2 50.5 mmHg (35-45) H 08/28/23 07:17 ABG pO2 72.7 mmHg (80.0-100.0) L 08/28/23 07:17 ABG PO2/FiO2 Ratio 0 08/28/23 07:17 ABG HCO3 39.0 mmol/L (22-26) H 08/28/23 07:17 ABG Base Excess 13.3 mmol/L (-2.0-2.0) H 08/28/23 07:17 Boogie Test N/a 08/28/23 07:17 Hematocrit 48.2 % (37-47) H 08/28/23 07:17 O2 Delivery Device Nc 08/28/23 07:17 O2 Liters/Min 3.0 % 08/28/23 07:17 FiO2 32.0 % 08/28/23 07:17 Table Games Supervisor ID Amh 08/28/23 07:17 Sodium 135 mmol/L (136-145) L 08/31/23 04:32 Potassium 3.2 mmol/L (3.5-5.1) L 08/31/23 04:32 Chloride 98 mmol/L (98-107) 08/31/23 04:32 Carbon Dioxide 31 mmol/L (22-29) H 08/31/23 04:32 Anion Gap 9.2 (5-19) 08/31/23 04:32 BUN 9 mg/dL (8-23) 08/31/23 04:32 Creatinine 0.6 mg/dL (0.5-0.9) 08/31/23 04:32 GFR Calculation Not Reportable 08/31/23 04:32 Glucose 123 mg/dL (65-115) H 08/31/23 04:32 POC Glucose 225 mg/dL (70-110) H 08/28/23 22:04 Calculated Osmolality 280 mOsm/kg (285-295) L 08/31/23 04:32 Lactic Acid 3.9 mmol/L (0.5-2.2) H 08/28/23 09:24 Lactic Acid (Sepsis) 4.4 mmol/L (0.5-2.2) H* 08/28/23 05:25 Calcium 7.9 mg/dL (8.5-10.5) L 08/31/23 04:32 Magnesium 5.0 mg/dL (1.7-2.3) H* 08/28/23 09:24 Total Bilirubin 0.4 mg/dL (0.15-1.2) 08/28/23 02:22 AST 36 U/L (0-32) H 08/28/23 02:22 ALT 39 U/L (0-33) H 08/28/23 02:22 Alkaline Phosphatase 68 U/L (35-105) 08/28/23 02:22 Troponin T Baseline 78 ng/L (0-10) H 08/28/23 05:25 Troponin T 120 Minute 72.82 ng/L (0-10) H 08/28/23 07:44 Delta Troponin T -5.18 ABS# (0-10) L 08/28/23 07:44 Troponin T Hi Sens 6Hr 81.83 ng/L (0-10) H 08/28/23 11:44 Troponin T Hi Sens 6Hr Delta 3.83 ng/L (0-12) 08/28/23 11:44 C-Reactive Protein 7.0 mg/L (0.0-4.9) H 08/28/23 05:25 NT-Pro-B Natriuret Pep 1904 pg/mL (0-450) H 08/28/23 05:25 Total Protein 6.9 g/dL (6.6-8.7) 08/28/23 02:22 Albumin 4.0 g/dL (3.5-5.2) 08/28/23 02:22 Globulin 2.9 g/dL (1.3-4.6) 08/28/23 02:22 Triglycerides 229 mg/dL (0-150) H 08/28/23 05:25 Cholesterol 241 mg/dL (0-200) H 08/28/23 05:25 LDL Cholesterol, Calc 143 mg/dL (50-129) H 08/28/23 05:25 HDL Cholesterol 52 mg/dL (60-100) L 08/28/23 05:25 LDL/HDL Ratio 2.75 RATIO (0.00-3.22) 08/28/23 05:25 Cholesterol/HDL Ratio 4.63 mg/dL (0.0-4.40) H 08/28/23 05:25 Lipase 30 U/L (13-60) 08/28/23 02:22 Procalcitonin 0.13 ng/mL (0-0.5) 08/28/23 05:25 Urine Color Yellow (Yellow) 08/28/23 03:30 Urine Appearance Clear (CLEAR) 08/28/23 03:30 Urine pH 7 (5-7) 08/28/23 03:30 Ur Specific [place] 1.020 (1.005-1.030) 08/28/23 03:30 Urine Protein Neg (Negative) 08/28/23 03:30 Urine Glucose (UA) Norm (Normal) 08/28/23 03:30 Urine Ketones Negative (Negative) 08/28/23 03:30 Urine Blood Neg (Negative) 08/28/23 03:30 Urine Nitrate Positive (Negative) H 08/28/23 03:30 Urine Bilirubin Neg (Negative) 08/28/23 03:30 Urine Urobilinogen Norm mg/dL (Negative) 08/28/23 03:30 Ur Leukocyte Esterase Trace (Negative) H 08/28/23 03:30 Urine RBC 0-4 /hpf (0-2) H 08/28/23 03:30 Urine WBC 0-4 /hpf (0-5) H 08/28/23 03:30 Ur Squamous Epith Cells 0-4 /hpf (0-5) H 08/28/23 03:30 Amorphous Sediment Not Reportable 08/28/23 03:30 Urine Bacteria Trace /hpf (NONE) 08/28/23 03:30 Vitals Last Vital Signs Temp 98.3 F 08/31/23 08:00 Pulse 88 08/31/23 08:00 Resp 16 08/31/23 08:00 BP 135/77 08/31/23 08:00 Pulse Ox 91 08/31/23 08:00 O2 Del Method Room Air 08/31/23 08:00 O2 Flow Rate 2 08/30/23 20:00 Discharge Plan Discharge Patient Disposition: Home Condition: Fair Prescriptions: New docusate sodium 100 mg Capsule 100 mg PO BID Qty: 10 0RF levothyroxine 112 mcg Tablet 112 mcg PO QAM 90 Days Qty: 90 0RF levofloxacin 750 mg tablet 750 mg PO DAILY 7 Days Qty: 7 0RF Continued hydrocodone-acetaminophen 10-325 mg tablet 1 tab PO Q4H PRN (Reason: Pain) prednisone 5 mg tablet 5 - 10 mg PO DAILY triamterene-hydrochlorothiazid 37.5-25 mg tablet 1 tab PO QAM PRN (Reason: Edema) omeprazole 20 mg capsule,delayed release(DR/EC) 20 mg PO DAILY Nasal Decongestant (pseudoeph) 30 mg tablet 30 - 60 mg PO Q6H PRN (Reason: Nasal Congestion) duloxetine 60 mg capsule,delayed release(DR/EC) 60 mg PO DAILY Lasix 40 mg tablet 40 mg PO BID PRN (Reason: Edema) Discontinued cephalexin 500 mg capsule 500 mg PO BID Discharge Orders: Discharge Order (Routine); Ordered 08/31/23 Ordered By: Addison Ambrose Referrals: Arlin Aguilar APN [Referring] - 09/02/23 1:20 pm Discharge Diet: Cardiac Discharge Activity: As per PT/OT instructions Patient Instructions: Hypokalemia (ED), Fecal Impaction (ED), Opioid Safety, Pain Management Activity Restrictions/Additional Instructions: Use the magnesium citrate you are prescribed at home to continue improving constipation. You should have your potassium rechecked on Tuesday or Tuesday. See your doctor for this. Return for worsening weakness, worsening mental status, fever, other concerning symptoms Discharge Attestations Time Spent in Discharge Care*: less than 30 min Quality Metrics Clinical Quality Measures [ No reported AMI, CVA or VTE this stay] Coding Level of Care Code 95137 Diagnoses Constipation K59.00 Fecal impaction in rectum K56.41 Acute hypokalemia E87.6 Acute kidney injury N17.9 UTI (urinary tract infection) N39.0 Acute encephalopathy G93.40 Pneumonia J18.9
[2023-08-31 12:00] VITALS: BP 145/75; PULSE 79; RESP 15; TEMP 36.7; O2SAT 92
--- NOTE | 2023-08-31 12:39 | PC.NURSE ---
Dr. Ambrose gave verbal orders to discontinue price catheter
--- NOTE | 2023-08-31 14:42 | PC.NURSE ---
Discussed discharge with patient and grandaughter. Discussed follow up appointments, new medications, discontinued and continued medications. Explained the Pneumonia Stop[place] with patient and granddaughter. Bother verbally understood all instructions.
[2023-08-31 14:45] VITALS: BP 145/75; PULSE 79; RESP 15; TEMP 36.7; O2SAT 92
--- NOTE | 2023-08-31 16:06 | PC.NURSE ---
Patient medications called into [facility] at this time. Family notified
== END 2023-08-31 14:00 | disposition home or self-care (01) ==
LOC: ER 07:08 → MEDSURG 09:13
PROVIDERS: Internal Medicine; Admitting Provider Family Medicine; Emergency Provider Emergency Medicine; PCP Internal Medicine; Visit Provider Family Medicine
DX: K59.00 Constipation, unspecified (principal); K56.41 Fecal impaction; E87.6 Hypokalemia; N17.9 Acute kidney failure, unspecified; N39.0 Urinary tract infection, site not specified; G93.40 Encephalopathy, unspecified; J18.9 Pneumonia, unspecified organism; G93.41 Metabolic encephalopathy; Z66 Do not resuscitate; G89.29 Other chronic pain; Z79.891 Long term (current) use of opiate analgesic; E03.9 Hypothyroidism, unspecified
CPT/HCPCS: 36415; 36416; 36600; 51702; 71045; 72170; 74018; 74177; 80048; 80053; 80061; 81001; 82803; 82962; 83605; 83690; 83735; 83880; 84145; 84484; 85025; 86140; 93005; 94664; 96365; 96366; 96367; 96375; 96376; 97116; 97161; 97165; 97530; 99285; C9113; G0378; J0696; J2543; J3480; J7030; Q9967

== ENCOUNTER 2023-09-21 14:53 | Outpatient (CLI) | payer MEDICARE, SELFPAY ==
--- NOTE | 2023-09-21 15:01 | CT_ITS ---
WS: [id number] CTA NECK TECHNIQUE: Contrast enhanced CTA of the neck with coronal and sagittal reformatted images and maximum intensity projection (MIP) images. NASCET criteria utilized. CLINICAL INFORMATION: OCCLUSION STENOSIS OF R CAROTID ARTERY COMPARISON: None. DLP: 183.[address] scans at [facility] use at least one of these dose optimization techniques: automated e xposure control; mA and/or kV adjustment per patient size (includes targeted exams where dose is matc hed to clinical indication); or iterative reconstruction. FINDINGS: RIGHT: RIGHT common carotid artery is patent. Tortuous RIGHT common carotid artery. RIGHT proximal IC A stenosis 87%. Moderate calcified atheromatous plaque. RIGHT ICA remains patent to the skull base. C avernous carotid calcification. LEFT: LEFT common carotid artery is patent. No significant LEFT ICA stenosis. Minimal calcified ather omatous plaque. LEFT ICA is patent to the skull base. Cavernous carotid calcification. Aortic calcification. Both vertebral arteries are patent. Both vertebrals are patent to the basilar j unction. Mild LEFT distal vertebral artery calcification. Moderate to advanced emphysematous changes in the lung apices. Fibrosis in the lung apices. Paranasal sinuses are well aerated. Mastoid air cells are well aerated. Normal posterior nasopharynx. Normal p arapharyngeal fat. Advancement spondylitic changes cervical spine. Ankylosis upper cervical spine wit h anterolisthesis C2 on C3 measuring 4.4 mm. Ankylosis at the C3-C5 disc spaces. Mild central canal s tenosis in the mid cervical spine. IMPRESSION: 1. RIGHT proximal ICA stenosis 87% with moderate calcified atheromatous plaque. RIGHT ICA is patent to the skull base. 2. No significant LEFT ICA stenosis. 3. Codominant patent vertebral arteries bilaterally.
[2023-09-21] MEDS: iohexol 350 mg/mL 500 mL Btl (per mL) IV (15:26)
== END 2023-09-21 14:54 | disposition home or self-care (01) ==
LOC: RAD 14:54
PROVIDERS: PCP Internal Medicine; Visit Provider Specialist
DX: I65.21 Occlusion and stenosis of right carotid artery (principal)
CPT/HCPCS: 70498; Q9967

== ENCOUNTER 2023-10-25 09:47 | Outpatient (CLI) | payer MEDICARE, SELFPAY ==
--- NOTE | 2023-10-25 09:53 | FL_ITS ---
WS: [id number] Examination: FL barium swallow [id number] Reason for Exam: OTHER DYSPHAGIA Date: October 25, 2023 Comparison: None. Findings: A air-contrast esophagram was performed. Contrast passed freely through the esophagus. There is no evidence of stricture or diverticulum Tertiary contractions of the esophagus is identified. Contrast passed freely into the stomach without obstruction Impression: There are tertiary contractions of the esophagus. There is no stricture or diverticulum.
== END 2023-10-25 09:48 | disposition home or self-care (01) ==
LOC: RAD 09:48
PROVIDERS: PCP Internal Medicine; Visit Provider Specialist
DX: R13.19 Other dysphagia (principal)
CPT/HCPCS: 74220

== ENCOUNTER 2023-11-07 12:39 | Emergency (ER) | payer MEDICARE, SELFPAY ==
[2023-11-07] VITALS (28 sets, daily range): BP systolic 108–135; BP diastolic 60–71; PULSE 69–84; RESP 10–25; TEMP 36.8; O2SAT 87–96
--- NOTE | 2023-11-07 12:42 | ECG_ITS ---
[facility] Test Date: 2023-11-07 Pat Name: Kassie Degroot Department: Room: Gender: Female Histology Technician: : 1935 Requested By: Samra Romero Order Number: [id number] Florentin MD: Milena Miller M.D. Measurements Intervals [place] Rate: 88 P: 18 PA: 159 QRS: -69 QRSD: 122 T: 46 QT: 358 QTc: 435 Interpretive Statements SINUS RHYTHM WITH SINUS ARRHYTHMIA LEFT ANTERIOR FASCICULAR BLOCK [QRS AXIS <= -45, QR IN I, RS IN II] SEPTAL MYOCARDIAL INFARCTION , PROBABLY OLD [40+ ms Q WAVE IN V1/V2] Compared to ECG 08/28/2023 11:08:29 Myocardial infarct finding now present Ectopic atrial rhythm no longer present Right bundle-branch block no longer present Electronically Signed On 11-07-2023 19:27:36 CDT by Milena Miller M.D. [id number]
--- NOTE | 2023-11-07 12:45 | XR_ITS ---
WS: [id number] Exam: XR chest 1V portable [id number] Date/Time of Exam: 11/07/2023 12:49 PM Reason For Exam: chest pain Comparison 08/28/2023. The lungs are fully expanded. No infiltrates identified. Mild plaque atelectasis noted in the bibasil ar areas. Normal cardiomediastinal silhouette. No pleural effusions. Moderately severe DJD of the LEF T shoulder. IMPRESSION: 1. No acute cardiopulmonary finding.
[2023-11-07 13:17] LABS: Basophils % 0.2 %; Eosinophils % 0.1 %; Hematocrit 40.5 % (36-47); Lymphocytes # 1.1 10^3/uL (0.8-4.8); Lymphocytes % 9.9 %; Mean Corpuscular HGB Conc 32.1 g/dL (30-55); Mean Corpuscular Hemoglobin 30.6 pg (27-33); Mean Corpuscular Volume 95.3 fl (85-98); Mean Platelet Volume 9.3 fL (7.4-10.4); Monocytes # 0.4 10^3/uL (0.2-0.9); Monocytes % 3.6 %; Neutrophils # 9.84 10^3/uL (1.8-7.7); Neutrophils % 85.4 %; Nucleated Red Blood Cells % 0 %; Platelet Count 300 10^3/cmm (157-399); Red Blood Count 4.25 10^6/uL (3.85-5.65); Red Cell Distribution Width 13.1 % (12.1-15.1); White Blood Count 11.52 10^3/uL (3.29-11.43)
[2023-11-07 13:33] LABS: Troponin(5th) Baseline 27 ng/L (0-10)
[2023-11-07 13:35] LABS: Alanine Aminotransferase 14 U/L (0-33); Albumin Level 3.7 g/dL (3.5-5.2); Alkaline Phosphatase 71 U/L (35-105); Anion Gap 15.9 (5-19); Aspartate Amino Transferase 12 U/L (0-32); Blood Urea Nitrogen 34 mg/dL (8-23); Calcium 9.5 mg/dL (8.5-10.5); Carbon Dioxide 29 mmol/L (22-29); Chloride 97 mmol/L (98-107); Creatinine Clr Calc Pharmacy 43.3789; Globulin 2.6 g/dL (1.3-4.6); Glucose 279 mg/dL (65-115); Osmolality Calculated 304 mOsm/kg (285-295); Potassium 3.9 mmol/L (3.5-5.1); Sodium 138 mmol/L (136-145); Total Bilirubin 0.2 mg/dL (0.15-1.2); Total Protein 6.3 g/dL (6.6-8.7)
--- NOTE | 2023-11-07 13:36 | W.ED.CHESTPA ---
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 Onset (ago): day(s) (2) Timing of current episode: episodic Prior episodes: Yes Pain location: left chest and right chest Pain radiation: left shoulder Severity: mild Quality: tightness Relieving factors: nothing Exacerbating factors: nothing Associated symptoms: Deny abdominal pain, diaphoresis, dyspnea, fever(s), leg edema, nausea, palpitations, sense of impending doom, syncope or vomiting Treatment prior to arrival: none Review of Systems Const: Denies: fever(s), chills or diaphoresis Card: Denies: chest pain, palpitations or syncope Resp: Denies: dyspnea GI: Denies: abdominal pain, nausea or vomiting : Denies: dysuria, urinary frequency or urinary urgency Musc: Denies: neck pain or back pain Skin/Breast: Denies: rash PFSH ED PFSH: Medical History Degenerative joint disease of spine Chronic anxiety Gastritis History of diverticulitis Hypothyroidism Spinal stenosis Chronic back pain History of gout Surgical History Thoracic outlet syndrome of both thoracic outlets (1981) Treated with surgery History of total left hip arthroplasty (2014) H/O esophagogastroduodenoscopy (01/08/20) Severe gastritis, hiatal hernia, Schatzki ring Hx of colonoscopy (01/08/20) Diverticulosis History of cholecystectomy History of tonsillectomy History of X 3 Family History Father Cancer Mother Diabetes Other Anesthesia complication CAD (coronary artery disease) Lung disease Denies family history of Bleeding disorder Stroke Social History Smoking and tobacco/nicotine status: never used tobacco/nicotine Alcohol intake: never Substance/Drug Use: never Physical Exam Const: COMMON NORMALS: no acute distress GENERAL APPEARANCE: cooperative and comfortable ORIENTATION/CONSCIOUSNESS: Yes awake, Yes oriented to person, Yes oriented to place and Yes oriented to time HENMT: COMMON NORMALS: normocephalic, atraumatic and hearing grossly normal bilaterally HEAD & SCALP: normocephalic and atraumatic Resp: COMMON NORMALS: normal respiratory effort, No retractions, No use of accessory muscles and clear to auscultation bilaterally AUSCULTATION: clear to auscultation bilaterally Cardio: COMMON NORMALS: regular rate, regular rhythm and No murmurs present (Cardio) RATE: regular rate RHYTHM: regular rhythm GI: COMMON NORMALS: Soft to palpation and No hepatosplenomegaly present AUSCULTATION: Yes normoactive bowel sounds PALPATION: Yes Soft to palpation, No Tenderness to palpation present (GI), No Guarding due to palpation present (GI) and Yes No hepatosplenomegaly present Extremity: COMMON NORMALS: normal to inspection, capillary refill normal, no clubbing, cyanosis or edema, no calf tenderness and no pedal edema Neuro: SENSORIUM/ORIENTATION: Yes oriented to person, Yes oriented to place and Yes oriented to time Skin: COMMON NORMALS: no rashes or lesions noted GENERAL SKIN EXAM: no rashes or lesions noted Course Vital Signs: Vital signs: Vital Signs Temperature 98.2 F 11/07/23 12:49 Pulse Rate 76 11/07/23 16:25 Respiratory Rate 12 11/07/23 16:25 Blood Pressure 121/60 11/07/23 16:25 Pulse Oximetry 95 11/07/23 16:25 Oxygen Delivery Me thod Room Air 11/07/23 16:25 MDM - Chest Pain Medical Decision Making No further chest pain no fever. Patient has a mild elevation in white count with very minimal. She does not have any other symptoms and wishes to go home her cardiac enzymes and EKG did not show any acute abnormality. Will discharge patient home set up for an outpatient Lexiscan sestamibi stress test. Recheck if she has further problems Medical Records I reviewed the patient's medical records. Lab Data I reviewed the patient's lab results. 11/07/23 13:05 11/07/23 13:05 Laboratory Results WBC 11.52 10^3/uL (3.29-11.43) H 11/07/23 13:05 RBC 4.25 10^6/uL (3.85-5.65) 11/07/23 13:05 Hgb 13.00 g/dL (11.27-16.99) 11/07/23 13:05 Hct 40.5 % (36-47) 11/07/23 13:05 MCV 95.3 fl (85-98) 11/07/23 13:05 MCH 30.6 pg (27-33) 11/07/23 13:05 MCHC 32.1 g/dL (30-55) 11/07/23 13:05 RDW 13.1 % (12.1-15.1) 11/07/23 13:05 Plt Count 300 10^3/cmm (157-399) 11/07/23 13:05 MPV 9.3 fL (7.4-10.4) 11/07/23 13:05 Neut % (Auto) 85.4 % 11/07/23 13:05 Lymph % (Auto) 9.9 % 11/07/23 13:05 [place] % (Auto) 3.6 % 11/07/23 13:05 Eos % (Auto) 0.1 % 11/07/23 13:05 Baso % (Auto) 0.2 % 11/07/23 13:05 Neut # (Auto) 9.84 10^3/uL (1.8-7.7) H 11/07/23 13:05 Lymph # (Auto) 1.1 10^3/uL (0.8-4.8) 11/07/23 13:05 [place] # (Auto) 0.4 10^3/uL (0.2-0.9) 11/07/23 13:05 Eos # (Auto) 0.0 10^3/uL (0.0-0.8) 11/07/23 13:05 Baso # (Auto) 0.0 10^3/uL (0.0-0.1) 11/07/23 13:05 Nucleated RBC % (auto) 0 % 11/07/23 13:05 Nucleated RBCs # 0.0 /100WBC 11/07/23 13:05 Sodium 138 mmol/L (136-145) 11/07/23 13:05 Potassium 3.9 mmol/L (3.5-5.1) 11/07/23 13:05 Chloride 97 mmol/L (98-107) L 11/07/23 13:05 Carbon Dioxide 29 mmol/L (22-29) 11/07/23 13:05 Anion Gap 15.9 (5-19) 11/07/23 13:05 BUN 34 mg/dL (8-23) H 11/07/23 13:05 Creatinine 0.7 mg/dL (0.5-0.9) 11/07/23 13:05 GFR Calculation Not Reportable 11/07/23 13:05 Glucose 279 mg/dL (65-115) H 11/07/23 13:05 Calculated Osmolality 304 mOsm/kg (285-295) H 11/07/23 13:05 Lactic Acid 1.9 mmol/L (0.5-2.2) 11/07/23 15:15 Calcium 9.5 mg/dL (8.5-10.5) 11/07/23 13:05 Total Bilirubin 0.2 mg/dL (0.15-1.2) 11/07/23 13:05 AST 12 U/L (0-32) 11/07/23 13:05 ALT 14 U/L (0-33) 11/07/23 13:05 Alkaline Phosphatase 71 U/L (35-105) 11/07/23 13:05 Troponin T Baseline 27 ng/L (0-10) H 11/07/23 13:05 Troponin T 120 Minute 23.79 ng/L (0-10) H 11/07/23 15:15 Delta Troponin T -3.21 ABS# (0-10) L 11/07/23 15:15 Total Protein 6.3 g/dL (6.6-8.7) L 11/07/23 13:05 Albumin 3.7 g/dL (3.5-5.2) 11/07/23 13:05 Globulin 2.6 g/dL (1.3-4.6) 11/07/23 13:05 All radiology interpretation(s) finalized by discharge Discharge Plan Discharge Patient Disposition: Home Clinical Impression: Atypical chest pain Condition: Stable Prescriptions: No Action hydrocodone-acetaminophen 10-325 mg tablet 1 tab PO Q4H PRN (Reason: Pain) prednisone 5 mg tablet 5 - 10 mg PO DAILY triamterene-hydrochlorothiazid 37.5-25 mg tablet 1 tab PO QAM duloxetine 60 mg capsule,delayed release(DR/EC) 60 mg PO DAILY furosemide [Lasix] 40 mg tablet 40 mg PO BID PRN (Reason: Edema) docusate sodium 100 mg Capsule 100 mg PO BID Qty: 10 0RF levothyroxine 112 mcg Tablet 112 mcg PO QAM 90 Days Qty: 90 0RF famotidine 40 mg tablet 40 mg PO BEDTIME potassium chloride 10 mEq tablet extended release 10 meq PO DAILY pantoprazole 40 mg tablet,delayed release (DR/EC) 40 mg PO QAM Discharge Orders: Discharge ED (Routine); Ordered 11/07/23 Ordered By: Rafa Andino Referrals: Jeff,JEANINE Oliveros [Primary Care Provider] - Discharge Diet: Usual diet Discharge Activity: Limit activity as instructed Patient Instructions: Opioid Safety, Pain Management Activity Restrictions/Additional Instructions: Thank you for choosing [facility] for your healthcare needs today. Please realize this is an emergency room and that we are providing you with a medical screening exam and this may not be complete and all inclusive of all the testing and or work up that you may need to determine your ailment or severity of your illness. It is very important that you follow up as instructed or that you return to the Emergency Department should you have concerns or if your condition changes or worsens in any way. We will discharge home case management will make arrangements for you to have a Lexiscan sestamibi stress test as an outpatient Coding Level of Care Code ED Project Manager Retail for Rachael Palacio
--- NOTE | 2023-11-07 14:31 | XR_ITS ---
WS: [id number] Exam: XR shoulder LT min 2V* [id number] Date/Time of Exam: 11/07/2023 2:38 PM Reason For Exam: trauma/pain No acute fracture. Advanced degenerative change at the glenohumeral joint with [id number]. Soft tis caron calcification seen along the humeral head that may indicate calcific tendinitis or bursitis. Mild AC joint DJD. Osteopenia. IMPRESSION1. No acute fracture. 2. Moderately advanced degenerative changes as detailed above. Possible tendinitis/bursitis.
--- NOTE | 2023-11-07 15:20 | ECG_ITS ---
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 Measurements Intervals [place] Rate: 74 P: 101 SD: 157 QRS: -55 QRSD: 126 T: 55 QT: 403 QTc: 449 Interpretive Statements SINUS RHYTHM LEFT AXIS DEVIATION [QRS AXIS < -30] LEFT BUNDLE BRANCH BLOCK [120+ ms QRS DURATION, 80+ ms Q/S IN V1/V2, 85+ ms R IN I/aVL/V5/V6] Compared to ECG 11/07/2023 12:42:35 Left-axis deviation now present Left bundle-branch block now present Sinus arrhythmia no longer present Left anterior fascicular block no longer present Myocardial infarct finding no longer present Electronically Signed On 11-07-2023 19:37:22 CDT by Milena Miller M.D. [id number]
[2023-11-07 15:45] LABS: Troponin 5 2HR 23.79 ng/L (0-10); Troponin 5 2HR Delta -3.21 ABS# (0-10)
[2023-11-07 15:47] LABS: Lactic Sepsis W/Reflex 1.9 mmol/L (0.5-2.2)
--- NOTE | 2023-11-09 09:11 | DCPLANNER ---
Sent outpatient order to centralized scheduling -
== END 2023-11-07 17:08 | disposition home or self-care (01) ==
PROVIDERS: Physician Assistant; Emergency Provider Family Medicine; PCP Nurse Practitioner Family
DX: R07.89 Other chest pain (principal)
CPT/HCPCS: 36415; 71045; 73030; 80053; 83605; 84484; 85025; 87040; 93005; 99285

== ENCOUNTER 2024-01-01 12:37 | Emergency (ER) | payer MEDICARE, SELFPAY ==
[2024-01-01 12:50] VITALS: BP 122/82; PULSE 96; RESP 18; TEMP 36.5; O2SAT 95; BMI 27.4
--- NOTE | 2024-01-01 13:08 | XRR_ITS ---
PROCEDURE INFORMATION: Exam: XR Abdomen Exam date and time: 01/01/2024 1:28 PM Age: 88 years old Clinical indication: Constipation TECHNIQUE: Imaging protocol: Radiologic exam of the abdomen. Views: Frontal supine view of the abdomen. 1 View. COMPARISON: CT abdomen pelvis w con* [id number] 08/28/2023 2:57 AM FINDINGS: Gastrointestinal tract: There is a moderate amount of stool noted throughout the colon. No bowel distension. Bones/joints: A left hip prosthesis is well seated and well aligned. The lumbar spine demonstrates multilevel vertebral body spurring and degenerative disc disease. No acute spinal fracture noted. XR/XR abdomen 1V* [id number] IMPRESSION: Mild constipation
[2024-01-01 13:27] LABS: Basophils # 0.1 10^3/uL (0.0-0.1); Basophils % 0.3 %; Eosinophils % 0.1 %; Hematocrit 50.1 % (36-47); Lymphocytes # 1.9 10^3/uL (0.8-4.8); Lymphocytes % 9.6 %; Mean Corpuscular HGB Conc 33.3 g/dL (30-55); Mean Corpuscular Volume 89.9 fl (85-98); Mean Platelet Volume 9.2 fL (7.4-10.4); Monocytes # 1.5 10^3/uL (0.2-0.9); Monocytes % 7.9 %; Neutrophils # 15.65 10^3/uL (1.8-7.7); Neutrophils % 81.4 %; Nucleated Red Blood Cells % 0 %; Platelet Count 396 10^3/cmm (157-399); Red Blood Count 5.57 10^6/uL (3.85-5.65); Red Cell Distribution Width 13.2 % (12.1-15.1); White Blood Count 19.23 10^3/uL (3.29-11.43)
--- NOTE | 2024-01-01 13:38 | CTR_ITS ---
PROCEDURE INFORMATION: Exam: CT Abdomen And Pelvis With Contrast Exam date and time: 01/01/2024 2:35 PM Age: 88 years old Clinical indication: Abdominal pain; Generalized; Additional info: Abd pain TECHNIQUE: Imaging protocol: Computed tomography of the abdomen and pelvis with contrast. Radiation optimization: All CT scans at this facility use at least one of these dose optimization techniques: automated exposure control; mA and/or kV adjustment per patient size (includes targeted exams where dose is matched to clinical indication); or iterative reconstruction. Contrast material: OMNI 350; Contrast volume: 100 ml; Contrast route: INTRAVENOUS (IV); COMPARISON: CT abdomen pelvis w con* [id number] 08/28/2023 2:57 AM RADIATION DOSE METRICS: Total DLP (mGy-cm): 543.03 FINDINGS: Lungs: Patchy atelectasis involves both lung bases. Liver: Normal. No mass. Gallbladder and bile ducts: The gallbladder has been resected. Pancreas: Normal. No ductal dilation. Spleen: Normal. No splenomegaly. Adrenal glands: Normal. No mass. Kidneys and ureters: Normal. No hydronephrosis. Stomach and bowel: There are multiple scattered diverticula throughout much of the colon. There is a large stool collection in the rectum causing rectal distension. Appendix: No evidence of appendicitis. Intraperitoneal space: Unremarkable. No free air. No significant fluid collection. Vasculature: Unremarkable. No abdominal aortic aneurysm. Lymph nodes: Unremarkable. No enlarged lymph nodes. Urinary bladder: Unremarkable as visualized. Reproductive: Unremarkable as visualized. Bones/joints: A left hip prosthesis is well seated and well aligned. The lumbar spine demonstrates multilevel vertebral body spurring and degenerative disc disease. No acute spinal fracture noted. Soft tissues: Unremarkable. CT/CT abdomen pelvis w con* [id number] IMPRESSION: 1. Prominent constipation 2. Colonic diverticulosis
[2024-01-01] MEDS: sodium chloride 0.9% 1,000 ML 999 ML IV (13:43)
--- NOTE | 2024-01-01 13:45 | ED_ITS ---
HPI - Abdominal Pain 2 General: Chief Complaint: Abdominal Pain Stated Complaint: abd pain Time Seen by Provider: 01/01/24 13:28 History of Present Illness: 88-year-old female comes in today with c omplaints of constipation. Patient reports lower abdominal pain and inability to push the stool out. Patient reports decreased appetite. Patient appears nontoxic. Patient has a history of chronic back pain, hypertension, GERD. Patient also has a history of diverticulitis. Patient has had several abdominal surgeries including cholecystectomy, appendectomy, hysterectomy, and 3 C-sections. Associated Symptoms: Reports constipation and nausea Review of Systems 2 General: Reports: 10 or more systems reviewed and unremarkable except in HPI and below GI: Reports: nausea and constipation PFSH ED 2 PFSH: Medical History Degenerative joint disease of spine Chronic anxiety Gastritis History of diverticulitis Hypothyroidism Spinal stenosis Chronic back pain History of gout Surgical History Thoracic outlet syndrome of both thoracic outlets (1981) Treated with surgery History of total left hip arthroplasty (2014) H/O esophagogastroduodenoscopy (01/08/20) Severe gastritis, hiatal hernia, Schatzki ring Hx of colonoscopy (01/08/20) Diverticulosis History of cholecystectomy History of tonsillectomy History of X 3 Family History Father Cancer Mother Diabetes Other Anesthesia complication CAD (coronary artery disease) Lung disease Denies family history of Bleeding disorder Stroke Social History Smoking and tobacco/nicotine status: never used tobacco/nicotine Alcohol intake: never Substance/Drug Use: never Physical Exam 2 Const: COMMON NORMALS: alert HENMT: COMMON NORMALS: normocephalic HEAD & SCALP: normocephalic Neck/C-Spine: COMMON NORMALS: full ROM Resp: COMMON NORMALS: normal respiratory effort and clear to auscultation bilaterally AUSCULTATION: clear to auscultation bilaterally Cardio: COMMON NORMALS: regular rate RATE: regular rate GI: COMMON NORMALS: non-tender : COMMON NORMALS: Yes no CVA tenderness BLADDER/KIDNEY EXAM: Yes no CVA tenderness Back/Pelvis: COMMON NORMALS: no CVA tenderness Extremity: COMMON NORMALS: full ROM Neuro: SENSORIUM/ORIENTATION: Yes alert Skin: COMMON NORMALS: turgor normal GENERAL SKIN EXAM: turgor normal Course 2 Vital Signs: Vital signs: Vital Signs Temperature 97.7 F 01/01/24 12:50 Pulse Rate 80 01/01/24 16:00 Respiratory Rate 18 01/01/24 16:00 Blood Pressure 139/78 01/01/24 16:00 Pulse Oximetry 94 01/01/24 16:00 Oxygen Delivery Me thod Room Air 01/01/24 16:00 Oxygen Flow Rate 2 01/01/24 14:07 MDM - Abdominal Pain Medical Decision Making 88-year-old female comes in today for complaints of constipation and abdominal discomfort. On exam abdomen is generalized tenderness. Respirations are even. Bowel sounds present. Skin is warm and dry. Vital signs are normal. Differential diagnosis includes constipation, bowel obstruction, dehydration, diverticulitis, colitis. 1530, laboratory values noted some elevation in white blood cell count of 19.23 most likely due to long-term steroid use, patient's potassium was 2.9, creatinine was 1.3, glucose is 237. Abdominal CT scan noted prominent constipation and colonic diverticulosis. No signs of abscess or infection was noted. Urinalysis showed hyaline casts. Believe patient probably has some dehydration as an secondary constipation. Patient will be given milk and molasses enemas to see if we can facilitate a good bowel movement. 1651, patient was able to have a medium sized bowel movement. Patient reported significant improvement of discomfort. Patient felt better and was discharged home with recommendations for follow-up or return for worsening symptoms. Lab Data 01/01/24 13:21 01/01/24 13:21 Labs/Radiology: Radiology Impressions Abdomen X-Ray 01/01/24 13:08 IMPRESSION: Mild constipation Abdomen/Pelvis CT 01/01/24 13:38 IMPRESSION: 1. Prominent constipation 2. Colonic diverticulosis Laboratory Results WBC 19.23 10^3/uL (3.29-11.43) H 01/01/24 13:21 RBC 5.57 10^6/uL (3.85-5.65) 01/01/24 13:21 Hgb 16.70 g/dL (11.27-16.99) 01/01/24 13:21 Hct 50.1 % (36-47) H 01/01/24 13:21 MCV 89.9 fl (85-98) 01/01/24 13:21 MCH 30.0 pg (27-33) 01/01/24 13:21 MCHC 33.3 g/dL (30-55) 01/01/24 13:21 RDW 13.2 % (12.1-15.1) 01/01/24 13:21 Plt Count 396 10^3/cmm (157-399) 01/01/24 13:21 MPV 9.2 fL (7.4-10.4) 01/01/24 13:21 Neut % (Auto) 81.4 % 01/01/24 13:21 Lymph % (Auto) 9.6 % 01/01/24 13:21 [place] % (Auto) 7.9 % 01/01/24 13:21 Eos % (Auto) 0.1 % 01/01/24 13:21 Baso % (Auto) 0.3 % 01/01/24 13:21 Neut # (Auto) 15.65 10^3/uL (1.8-7.7) H 01/01/24 13:21 Lymph # (Auto) 1.9 10^3/uL (0.8-4.8) 01/01/24 13:21 [place] # (Auto) 1.5 10^3/uL (0.2-0.9) H 01/01/24 13:21 Eos # (Auto) 0.0 10^3/uL (0.0-0.8) 01/01/24 13:21 Baso # (Auto) 0.1 10^3/uL (0.0-0.1) 01/01/24 13:21 Nucleated RBC % (auto) 0 % 01/01/24 13:21 Nucleated RBCs # 0.0 /100WBC 01/01/24 13:21 Sodium 136 mmol/L (136-145) 01/01/24 13:21 Potassium 2.9 mmol/L (3.5-5.1) L 01/01/24 13:21 Chloride 90 mmol/L (98-107) L 01/01/24 13:21 Carbon Dioxide 29 mmol/L (22-29) 01/01/24 13:21 Anion Gap 19.9 (5-19) H 01/01/24 13:21 BUN 55 mg/dL (8-23) H 01/01/24 13:21 Creatinine 1.3 mg/dL (0.5-0.9) H 01/01/24 13:21 GFR Calculation Not Reportable 01/01/24 13:21 Glucose 237 mg/dL (65-115) H 01/01/24 13:21 Calculated Osmolality 305 mOsm/kg (285-295) H 01/01/24 13:21 Calcium 11.2 mg/dL (8.5-10.5) H 01/01/24 13:21 Magnesium 2.5 mg/dL (1.7-2.3) H 01/01/24 13:21 Total Bilirubin 0.8 mg/dL (0.15-1.2) 01/01/24 13:21 AST 19 U/L (0-32) 01/01/24 13:21 ALT 23 U/L (0-33) 01/01/24 13:21 Alkaline Phosphatase 84 U/L (35-105) 01/01/24 13:21 Total Protein 7.2 g/dL (6.6-8.7) 01/01/24 13:21 Albumin 4.0 g/dL (3.5-5.2) 01/01/24 13:21 Globulin 3.2 g/dL (1.3-4.6) 01/01/24 13:21 Urine Color Yellow (Yellow) 01/01/24 14:26 Urine Appearance Clear (CLEAR) 01/01/24 14:26 Urine pH 6.5 (5-7) 01/01/24 14:26 Ur Specific [place] 1.015 (1.005-1.030) 01/01/24 14:26 Urine Protein Trace (Negative) 01/01/24 14:26 Urine Glucose (UA) Norm (Normal) 01/01/24 14:26 Urine Ketones Negative (Negative) 01/01/24 14:26 Urine Blood Neg (Negative) 01/01/24 14:26 Urine Nitrate Negative (Negative) 01/01/24 14:26 Urine Bilirubin Neg (Negative) 01/01/24 14:26 Urine Urobilinogen Norm mg/dL (Negative) 01/01/24 14:26 Ur Leukocyte Esterase Negative (Negative) 01/01/24 14:26 Urine RBC None /hpf (0-2) 01/01/24 14:26 Urine WBC None /hpf (0-5) 01/01/24 14:26 Ur Squamous Epith Cells 0-4 /hpf (0-5) H 01/01/24 14:26 Amorphous Sediment Not Reportable 01/01/24 14:26 Urine Bacteria Trace /hpf (NONE) 01/01/24 14:26 Hyaline Casts 15-25 /lpf H 01/01/24 14:26 All radiology interpretation(s) finalized by discharge Discharge Plan Discharge Patient Disposition: Home Clinical Impression: Constipation Qualifiers: Constipation type: unspecified constipation type Qualified Code(s): K59.00 - Constipation, unspecified Condition: Stable Prescriptions: No Action hydrocodone-acetaminophen 10-325 mg tablet 1 tab PO Q4H PRN (Reason: Pain) prednisone 5 mg tablet 5 - 10 mg PO DAILY triamterene-hydrochlorothiazid 37.5-25 mg tablet 1 tab PO QAM duloxetine 60 mg capsule,delayed release(DR/EC) 60 mg PO DAILY furosemide [Lasix] 40 mg tablet 40 mg PO BID PRN (Reason: Edema) docusate sodium 100 mg Capsule 100 mg PO BID Qty: 10 0RF famotidine 40 mg tablet 40 mg PO BEDTIME potassium chloride 10 mEq tablet extended release 10 meq PO DAILY pantoprazole 40 mg tablet,delayed release (DR/EC) 40 mg PO QAM Discharge Orders: Discharge ED (Routine); Ordered 01/01/24 Ordered By: Femi Munugia Referrals: Jeff,JEANINE Oliveros [Primary Care Provider] - Discharge Diet: Usual diet Discharge Activity: Increase activity as tolerated Patient Instructions: Constipation (ED) Activity Restrictions/Additional Instructions: Continue with routine care. Consider MiraLAX as another option for the treatment and prevention of constipation. Coding Level of Care Code ED Bilingual Inside Sales Representative for Rachael Palacio
[2024-01-01 13:48] LABS: Alanine Aminotransferase 23 U/L (0-33); Alkaline Phosphatase 84 U/L (35-105); Anion Gap 19.9 (5-19); Aspartate Amino Transferase 19 U/L (0-32); Blood Urea Nitrogen 55 mg/dL (8-23); Calcium 11.2 mg/dL (8.5-10.5); Carbon Dioxide 29 mmol/L (22-29); Chloride 90 mmol/L (98-107); Globulin 3.2 g/dL (1.3-4.6); Glucose 237 mg/dL (65-115); Osmolality Calculated 305 mOsm/kg (285-295); Sodium 136 mmol/L (136-145); Total Bilirubin 0.8 mg/dL (0.15-1.2); Total Protein 7.2 g/dL (6.6-8.7)
[2024-01-01 14:07] VITALS: BP 140/83; PULSE 98; RESP 18; O2SAT 93
[2024-01-01 14:20] LABS: Creatinine Clr Calc Pharmacy 26.5267; Potassium 2.9 mmol/L (3.5-5.1)
--- NOTE | 2024-01-01 14:32 | PC.NURSE ---
Patient placed on 2lnc d/t sats running between 81-87% on RA. Provider notified.. Pt does not wearing oxygen at home, but family reports she is placed on oxygen everytime she comes in. Provider thinks that it just perfusion to finger tips. Pt reports no sob.
[2024-01-01] MEDS: iohexol 350 mg/mL 500 mL Btl (per mL) IV (14:45)
[2024-01-01 14:53] LABS: Magnesium 2.5 mg/dL (1.7-2.3)
[2024-01-01] MEDS: potassium chloride oral liq 20 mEq/15 mL UDC 40 MEQ PO (15:01)
[2024-01-01 15:07] LABS: Add Urine Microscopic? YES; Bilirubin Urine Neg (Negative); Blood Urine Neg (Negative); Glucose Urine UA Norm (Normal); Ketones Urine Negative (Negative); Leukocyte Esterase Urine Negative (Negative); Nitrate Urine Negative (Negative); Protein Urine Trace (Negative); Specific Gravity, Urine 1.015 (1.005-1.030); Urine Appearance Clear (CLEAR); Urine Color Yellow (Yellow); Urobilinogen Urine Norm (Negative); pH Urine 6.5 (5-7)
[2024-01-01 15:08] LABS: Add Urine Culture? No; Bacteria Urine TRACE /hpf; Hyaline Casts Urine 15-25 /lpf; Squamous Epithelial Cell Urine 0-4 /hpf (0-5)
[2024-01-01 16:00] VITALS: BP 139/78; PULSE 80; RESP 18; O2SAT 94
[2024-01-01 17:17] VITALS: BP 132/78; PULSE 65; O2SAT 94
== END 2024-01-01 17:18 | disposition home or self-care (01) ==
PROVIDERS: Emergency Medicine; Emergency Provider Nurse Practitioner Family; PCP Nurse Practitioner Family
DX: K59.00 Constipation, unspecified (principal)
CPT/HCPCS: 74018; 74177; 80053; 81001; 83735; 85025; 96360; 96361; 99285; J7030; Q9967

== ENCOUNTER → 2024-01-18 10:45 | Outpatient (BNVA) | payer MEDICARE, SELFPAY | PROVIDERS: PCP Nurse Practitioner Family; Visit Provider Internal Medicine Cardiovascular Disease | DX: I13.0 Hypertensive heart and chronic kidney disease with heart failure and stage 1 through stage 4 chronic kidney disease, or unspecified chronic kidney disease (principal); I50.9 Heart failure, unspecified; N18.9 Chronic kidney disease, unspecified; M54.2 Cervicalgia; I65.21 Occlusion and stenosis of right carotid artery; R01.1 Cardiac murmur, unspecified; E78.5 Hyperlipidemia, unspecified | CPT/HCPCS: 99205 ==

== ENCOUNTER 2024-02-03 08:14 | Outpatient (CLI) | payer MEDICARE, SELFPAY ==
--- NOTE | 2024-02-03 | ECG_ITS ---
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 Interpretive Statements NAME OF STUDY: LEXISCAN SESTAMIBI STRESS TEST INDICATION: Atypical Chest Pain; CHF RESULTS TO TSanket LANDRY PROCEDURE: At the baseline, the EKG revealed normal sinus rhythm with a right bundle branch block. Left anterior fascicular block. The baseline heart was 74 bpm with a blood pressue of 132/68 mm of Hg Lexiscan was infused over a period of 20 seconds. A total of 0.4 milligrams of Lexiscan was infused. The stress phase was continued for a total of 5 minutes. Heart rate at the end of the stress phase was 101 bpm with a blood pressure 146/96 mm of Hg. The EKG at the peak infusion revealed no significant changes. Sestamibi was injected 20 seconds after the Lexiscan infusion. Heart rate at the end of the recovery phase was 87 bpm with a blood pressure of 135/84 mm of Hg. CONCLUSION: 1. No significant EKG changes with the LexiScan infusion 2. No LexiScan induced chest pain or cardiac arrhythmia 3. Normal blood pressure and heart rate response 4. Sestamibi/sestamibi perfusion scan pending; see separate report. Electronically Signed On 02-09-2024 22:33:38 CDT by Milena Miller M.D. [id number]
[2024-02-03 08:17] VITALS: BMI 27.4
--- NOTE | 2024-02-03 08:20 | NMCV_ITS ---
NM brice perf SPECT r/s* [id number] Kassie Degroot Age: 88 Gender: F : 1935 Exam Date: 02/03/2024 08:20 Ordering Phys: Milena Miller MD ([email or web address]) Technologist: LETTY Case Exam Location: [facility] Indications: CP, CHF STRESS TEST Please see separate stress test report in [facility] for full findings IMAGE PROTOCOL Rest/Stress 1 Lexiscan Day Radiopharmaceutical Dose (mCi) Administration Site Administered by Rest: Tc-99m 10.7 IV LETTY Case Sestamibi Stress:Tc-99m 32.7 IV LETTY Case Sestamibi Rest: 03-Feb-2024 60 Discovery 630 Stress: 03-Feb-2024 30 Discovery 630 0.4mg Lexiscan. Supine position only as patient was unable to lay prone. SPECT RESULTS Technical Quality: Good Raw Data Analysis: Normal Image Corrections: No attenuation or motion correction applied Summed Stress Score: 0 Summed Rest Score: 4 Summed Difference Score: 0 PERFUSION FINDINGS Fairly uniform myocardial tracer uptake. No significant perfusion abnormalities were noted FUNCTIONAL RESULTS (calculated via Gated SPECT) Stress Image LV EF (%): 68 Stress EDV (mL):96 TID: 1.15 Stress ESV (mL):31 FUNCTIONAL FINDINGS: Segmental wall motion analysis revealing no gross wall motion abnormalities IMPRESSIONS 1. Myocardial perfusion imaging revealing fairly uniform myocardial tracer uptake 2. Normal LV ejection fraction of 68%. 3. LV wall motion analysis revealing no gross wall motion abnormalities. 4. Normal LV volume 5. The transient ischemic dilatation ratio was 1.15-borderline high, may suggest endocardial ischemia. But the positive predictive value of this finding is low. Possibly no significant coronary ischemia based on the above findings. Dr Milena Miller MD FAC (Electronically Signed) Final Date: 03 February 2024 21:08 S
[2024-02-03] MEDS: regadenoson 0.4 Mg/5 ml Syringe IVP (09:36)
[2024-02-03 09:51] VITALS: BP 132/74; PULSE 72
== END 2024-02-03 08:15 | disposition home or self-care (01) ==
LOC: CDL 08:15
PROVIDERS: PCP Nurse Practitioner Family; Visit Provider Internal Medicine Cardiovascular Disease
DX: Z98.61 Coronary angioplasty status (principal)
CPT/HCPCS: 36415; 78452; 93017; 96374; A9500; J2785